=== PATIENT | male | born 1940 | race Caucasian/White ===

== ENCOUNTER → 2017-09-16 | Outpatient (CLI) | payer OTHER ==
[~2017-09-16] MED LIST: CMD/3 PO
--- NOTE | 2017-09-16 13:49 | DIAGNOSTIC IMAGING REPORT ---
CT SCAN OF THE CHEST WITHOUT IV CONTRAST CLINICAL HISTORY: Adenopathy. Pulmonary nodules. Hemoptysis. COMPARISON STUDY: Chest CT scans dated 02/21/2014 and 05/15/2011. TECHNIQUE: CT scan of the thorax was performed from the thoracic inlet to the upper abdomen. Images are reviewed in the axial, sagittal, and coronal planes. IV contrast was not administered for this examination as per the referring clinician. A dose lowering technique was utilized adhering to the principles of ALARA. The examination is compromised by motion artifact. CT DOSE: 386.11 mGy.cm FINDINGS: Thyroid: Imaged portions of the thyroid gland are normal in size and attenuation. Thoracic aorta: There is atherosclerotic calcification of the thoracic aorta, which is normal in caliber and demonstrates standard 3-vessel arch anatomy. Heart: The heart is enlarged and without pericardial effusion. The coronary arteries and mitral annulus are densely calcified. The pulmonary trunk is dilated measuring 3.5 cm in diameter. This suggests pulmonary artery hypertension. Lungs and pleural spaces: Evaluation of the lung parenchyma is degraded by motion artifact. There is no lobar consolidation or pleural effusion. The trachea and central airways are clear. There is an 8 mm pulmonary nodule in the left lower lobe seen on image #123. This is new from 02/21/2014. Foci of nodularity in the right middle lobe seen on image #31 measuring up to 7 mm and in the left upper lobe seen on images #16 measure 11 mm and #91 measuring 7 mm present dating back to 2011. Additional scattered nodular densities are noted. There is patchy groundglass consolidation in the right upper lobe. Mediastinum: There are numerous mildly enlarged mediastinal lymph nodes. A right paratracheal node on image #86 measures 14 mm short axis. A node in the anterior mediastinum on image #74 measures 11 mm in short axis. Prevascular nodes measure up to 9 mm short axis. A subcarinal node measures up to 17 mm in short axis. Kendra: The kendra are not well assessed without IV contrast. Bilateral hilar adenopathy is suspected. Calcified hilar nodes are seen on the right. Axillae: There is no axillary lymphadenopathy. Upper abdomen: There is a tiny hiatal hernia. A 3 cm cyst is again seen in the left upper pole. There are calcified splenic granulomas. Skeletal structures: The skeletal structures are osteopenic. There are mild compression deformities of T2, T3, and T12. No lytic or blastic bony lesions are seen. Arthritic change is seen in the shoulders and thoracic spine. IMPRESSION: 1. Motion degraded examination 2. There is patchy ground glass consolidation in the right upper lobe, likely resenting an infectious/inflammatory pneumonitis. Clinical correlation will be required. 3. Cardiomegaly. 4. Nonspecific mediastinal and hilar adenopathy are identified and similar in appearance to the 02/21/2014 examination. 5. There is an 8 mm left lower lobe pulmonary nodule which is new from prior studies. This is pathologically indeterminant and should be followed as per the Fleischner criteria. 6. Additional nodular densities have been present dating back to 2011 and are of low suspicion. Please refer to below summary of Fleischner criteria recommendations for follow-up of incidental CT nodules (Patel Da Silva, Guidelines for management of small pulmonary nodules detected on CT scans: A statement from the Fleischner Society, Radiology 237: [id number].) SOLID NODULES Solitary nodule size: <6 mm * low risk patients: no follow-up needed * high risk patients: optional CT at 12 months Solitary nodule size: 6-8 mm * low risk patients: follow-up at 6-12 months, then consider further follow-up at 18-24 months * high risk patients: initial follow-up CT at 6-12 months and then at 18-24 months if no change Solitary nodule size: >8 mm * either low or high risk patients - consider follow-up CT at 3 months, and/or CT-PET, and/or biopsy Multiple nodules size: <6 mm * low risk patients: no routine follow-up * high risk patients: optional CT at 12 months Multiple nodules size: 6-8 mm * low risk patients: follow-up at 3-6 months, then consider further follow-up at 18-24 months * high risk patients: follow-up at 3-6 months, then at 18-24 months if no change Multiple nodules size: >8 mm * low risk patients: follow-up at 3-6 months, then consider further follow-up at 18-24 months * high risk patients: follow-up at 3-6 months, then at 18-24 months if no change Note: newly detected indeterminate nodule in persons 35 years of age or older. * low risk patients: minimal or absent history of smoking and/or other known risk factors * high risk patients: history of smoking or of other known risk factors (e.g. first degree relative with lung cancer, or exposure to asbestos, radon, uranium) * if a nodule up to 8 mm is partly solid or is ground glass further follow-up is required after 24 months to exclude possible slow growing adenocarcinoma (DEMETRIO) SUBSOLID NODULES Solitary pure ground-glass nodule * nodule size <6 mm - no CT follow-up required * nodule size >=6 mm - follow-up CT at 6-12 months, then every 2 years until 5 years Solitary part-solid nodule * nodule size <6 mm - no CT follow-up required * nodule size >=6 mm - follow-up CT at 3-6 months. If unchanged, and solid component remains <6 mm, then annual follow-up for 5 years Multiple subsolid nodules * nodule size <6 mm - follow-up CT at 3-6 months, consider further follow-up at 2 and 4 years if stable * nodule size >=6 mm - follow-up CT at 3-6 months, subsequent management based on the most suspicious nodule(s) Electronically signed by: Gal Cleveland M.D. 09/16/2017 1:48 PM Dictated Date/Time: 09/16/2017 1:30 PM
== END | disposition home or self-care (01) ==
LOC: C.CTS 13:16
PROVIDERS: ATTEND Internal Medicine Critical Care Medicine
DX: R59.0 Localized enlarged lymph nodes (principal); R04.2 Hemoptysis; R91.8 Other nonspecific abnormal finding of lung field; I51.7 Cardiomegaly

== ENCOUNTER 2021-06-29 13:29 | Inpatient (IN) ==
[2021-06-29] MEDS ORDERED: CEFEPIME 2,000 MG/20 ML VIAL IV STA (13:37)
[2021-06-29] MEDS ORDERED: METOPROLOL TARTRATE 1 MG/ML VIAL IV STA (13:37)
--- NOTE | 2021-06-29 13:37 | Emergency Department Note ---
Impression & Plan Acute hypoxemic respiratory failure, Atrial fibrillation with rapid ventricular response, Atrial flutter ED Provider Note NAME: SORAIDA HALE AGE: 81 SEX: M : 1940 ARRIVES VIA: Ambulance INFORMANT: Patient, ED PROVIDER(S): Sin Wolfe MD Chief Complaint: Shortness of HPI: Patient reportedly has completed shortness of breath beginning in the last 24 hours. The patient has had mild cough but it is nonproductive. Patient does describe some left-sided chest discomfort as well as some additional left arm pain. Patient has been using a lidocaine patch to the left arm. No recent falls or trauma. The patient has had a recent complicated course of history described below. The patient does have a discharge summary from [facility]. This was completed on June 27 which was 2 days prior. Patient's reason for admission at that time is critical illness myopathy recent cardiogenic shock and acute respiratory failure with aortic and mitral valve replacement aspiration of breath patient does have a significant medical history for the patient had under gone elective aortic valve replacement mitral valve replacement. Postoperatively the patient was in cardiogenic shock and respiratory failure requiring intubation and pressors. Patient did require intubation and transvenous pacemaker placement bronchoscopy pneumothorax status post chest tube placement and subsequently had a PEG placed all occurring between the time that he had his procedure on March 26 2021 and April 19. Patient had a tracheostomy placed May 21. Patient was seen by his operative cardiothoracic surgeon Dr. Castellon on June 26 and the patient reported no symptoms at that time patient does have a history of diastolic CHF and pulmonary hypertension. ROS: See HPI for pertinent positives and negatives. A total of 10 systems were reviewed and otherwise negative. Past medical history: See below Surgical history: See below Social history: See below Physical Exam: GENERAL: Tachypnea, mildly ill in appearance, nonrebreather in place. EYE EXAM: Normal conjunctiva. PERRL, no anisocoria and EOM's grossly intact w/o pain. NECK: Supple, no nuchal rigidity, no adenopathy, non-tender. No signs of meningismus. Tracheostomy scar noted and well-healed. LUNGS: Tachypnea noted, decreased breath sounds throughout. HEART: Tachycardic and irregular regular, no MRG. ABDOMEN: Abdomen soft, non-tender, PEG tube in place, normo-active bowel sounds, no masses, no rebound or guarding. BACK: No CVA TTP. SKIN: No rashes and no bruising. UPPER EXTREMITIES: Upper extremities are grossly normal. LOWER EXTREMITIES: Grossly normal, no edema. NEURO EXAM: A&O x3, cranial nerves II-XII grossly intact, normal speech, moves all 4 extremities on command w/o issue. Differential diagnoses: Reactive airway disease, pneumonia, pneumothorax, COPD, CHF, infections, cardiac ischemia, pulmonary embolism, musculoskeletal, gastrointestinal, as well as other pathologies. Course: Patient was seen and evaluated the bedside. Full history physical exam was performed. EKG interpreted by me A. fib with RVR, rate of 130, wide QRS, right bundle branch block, left axis deviation Repeat EKG interpreted by me Likely 2-1 atrial flutter, ventricular rate of 72, wide QRS, right bundle branch block pattern, left axis deviation Imaging Studies: See Below Cardiac monitoring: An order was placed for continuous cardiac monitoring. The monitor shows a rate of 135 with tachycardic and irregularly irregular rhythm. MDM: Patient was seen due to concern for shortness of breath. Patient did have some significant tachycardia and likely A. fib. Patient does not have any obvious volume overload in the lower extremities. The patient was placed on BiPAP and was given dose of Lopressor. In the interim I was going to perform a bedside ultrasound with the patient converted and was what appeared to be a 2-1 atrial flutter. I did speak with on-call cardiology Dr. Villeda was able to review the patient's notes and patient had a bout of a flutter back in April. The patient was not in any current blood thinning medications at that time and currently was unsure as to whether or not he could continue blood thinning medications. This is deferred at this time. Patient states that his chest pain is virtually res olved with heart rate improvement. I do believe that the majority of the patient's symptoms are likely due to his diastolic dysfunction. Patient did have mild white count of 12 with a hemoglobin of 11. The patient did receive empiric antibiotics and blood cultures were completed as well. Patient's blood gas did show some mild hypercarbia with a PCO2 of 62. The patient did tolerate the BiPAP well and was feeling improved. Patient's kidney function is unremarkable. The patient's initial troponin was elevated at 50 with the patient's chest pain was improved. Patient's repeat EKG after Lop ressor did not show any obvious ischemic changes at this time. Procalcitonin was not elevated. I did speak with the on-call hospitalist Jyothi Zamudio PA-C and the patient was admitted to the medicine service by Dr. Aldana. I did update the patient's family and were at bedside Critical Care: I have personally spent 77 minutes of critical care time in direct management of this patient. This includes bedside care, interpretation of diagnostic studies, and testing, discussion with consultants, patient, and family members, and other require inpatient management activities. This 77 minutes is in excess of all separately billable procedures. Past Med/Surg History Medical History Allergic rhinitis Anemia Aortic stenosis CAD (coronary artery disease) Cardiomyopathy CHF (congestive heart failure), NYHA class II Chronic diastolic CHF (congestive heart failure) Congestive heart failure (CHF) Dysphagia GERD without esophagitis Gout Hearing loss of both ears due to cerumen impaction Hypercholesterolemia Itching Lung nodule Mediastinal lymphadenopathy Medicare annual wellness visit, subsequent Memory loss Mitral regurgitation and mitral stenosis Pulmonary hypertension Varicose vein of leg Vitamin D deficiency Surgical History Amputated finger H/O arthroscopic knee surgery Family History Other No pertinent family history Social History Smoking Status: Never smoker Second Hand Exposure: No; Do You Dip or Chew Tobacco: No; Tobacco Cessation Education Requested by Patient: No Hx Alcohol Use: No Hx Substance Use: No Preferred Language: Yoruba Communication Ability: Effective Visual Impairment: Limited Hearing Ability: Hard of Hearing [employer] Required: No Beliefs That Will Affect Care: None marital status: Single Current Living Situation: Custodial current occupational status: employed Other Information That Helps Us Care for You: No Feels Safe at Home: Yes Safety Concerns: Feels Safe At This Time Childhood Exposure to Second-Hand Smoke: No Physical Activity Frequency: Daily Seatbelt Use: always Sunscreen Use: No Assistive Devices: Oxygen - Continuous Allergies Allergies Allergy/AdvReac Type Severity Reaction Status Date / Time Penicillins Allergy Intermediate ITCH Verified 06/29/21 14:29 Iodinated Contrast Media Allergy Verified 06/29/21 14:29 [Iodinated Contrast- Oral and IV Dye] doxycycline AdvReac Intermediate dermatitis Verified 06/29/21 14:29 on lips and hands. Home Meds Home Medications Medication Instructions Recorded Confirmed aspirin 81 mg tablet,delayed 81 mg FEEDING TUBE DAILY tab 06/26/20 06/29/21 release (Aspirin Low Dose) acetaminophen 325 mg/10.15 mL oral 650 mg FEEDING TUBE Q6H PRN MDD 3 05/21/21 06/29/21 solution GRAMS/24 HOURS bisacodyl 10 mg rectal suppository 10 mg VT DAILY PRN 05/21/21 06/29/21 ferrous sulfate 300 mg (60 mg 300 mg FEEDING TUBE DAILY 05/21/21 06/29/21 iron)/5 mL oral liquid finasteride 5 mg tablet 5 mg FEEDING TUBE DAILY 05/21/21 06/29/21 atorvastatin 40 mg tablet 40 mg FEEDING TUBE DAILY 06/29/21 06/29/21 lidocaine 4 % topical patch 1 patch TOPICAL DAILY 06/29/21 06/29/21 omeprazole 20 mg capsule,delayed 0 mg FEEDING TUBE DAILY 06/29/21 06/29/21 release sennosides 8.6 mg-docusate sodium 2 tab-cap BID 06/29/21 06/29/21 50 mg tablet (Senokot-S) sildenafil (pulm.hypertension) 20 10 mg FEEDING TUBE TID 06/29/21 06/29/21 mg tablet trazodone 100 mg tablet 100 mg FEEDING TUBE HS 06/29/21 06/29/21 Results & Data (ED) Vital Signs Vital Signs - 24 hr 06/29/21 13:38 06/29/21 13:53 06/29/21 14:00 Temperature 37 C Temperature Source Oral Pulse Rate 132 H 145 H 143 H Pulse Rate [Right Finger] Pulse Rate from SpO2 Sensor Pulse Rhythm Regular Pulse Rhythm [Right Finger] Pulse Strength Normal Pulse Strength [Right Finger] Respiratory Rate 36 H 38 H Respiratory Effort / Characteristics Accessory Muscle Use Spontaneous Labored Respiratory Depth Retractive Respiratory Pattern Tachypnea Blood Pressure 149/84 H 149/84 H Blood Pressure [Right Arm] Blood Pressure Mean 105 Blood Pressure Mean [Right Arm] Blood Pressure Position [Right Arm] Pulse Oximetry 97 94 Oxygen Delivery Method Non-rebreather Oxygen Flow Rate 15 Fraction of Inspired Oxygen 40 Sepsis Recent Fever Within 48 Hours No Sepsis New/Unexplained Change in Mental Status No Sepsis Action Taken by Nursing Previously Notified Oxygen Flow Rate - Titration 15 Pulse Oximetry Post Tiitration 97 06/29/21 14:07 06/29/21 14:10 06/29/21 14:31 Temperature Temperature Source Pulse Rate 73 73 Pulse Rate [Right Finger] Pulse Rate from SpO2 Sensor 73 Pulse Rhythm Regular Pulse Rhythm [Right Finger] Pulse Strength Pulse Strength [Right Finger] Respiratory Rate 26 H 22 Respiratory Effort / Characteristics Accessory Muscle Use Labored Respiratory Depth Respiratory Pattern Blood Pressure 131/68 Blood Pressure [Right Arm] 149/84 H Blood Pressure Mean 89 Blood Pressure Mean [Right Arm] 105 Blood Pressure Position [Right Arm] Pulse Oximetry 95 95 97 Oxygen Delivery Method BiPAP BiPAP Oxygen Flow Rate Fraction of Inspired Oxygen 40 Sepsis Recent Fever Within 48 Hours Sepsis New/Unexplained Change in Mental Status Sepsis Action Taken by Nursing Oxygen Flow Rate - Titration Pulse Oximetry Post Tiitration 06/29/21 15:06 06/29/21 15:54 06/29/21 16:05 Temperature Temperature Source Pulse Rate Pulse Rate [Right Finger] 83 74 74 Pulse Rate from SpO2 Sensor Pulse Rhythm Pulse Rhythm [Right Finger] Regular Regular Pulse Strength Pulse Strength [Right Finger] Normal Normal Respiratory Rate 20 18 18 Respiratory Effort / Characteristics Labored Non-Labored Non-Labored Respiratory Depth Normal Normal Normal Respiratory Pattern Blood Pressure Blood Pressure [Right Arm] 132/87 129/59 L 134/67 Blood Pressure Mean Blood Pressure Mean [Right Arm] 102 82 89 Blood Pressure Position [Right Arm] Lying Pulse Oximetry 99 99 99 Oxygen Delivery Method Room Air BiPAP Oxygen Flow Rate Fraction of Inspired Oxygen Sepsis Recent Fever Within 48 Hours Sepsis New/Unexplained Change in Mental Status Sepsis Action Taken by Nursing Oxygen Flow Rate - Titration Pulse Oximetry Post Tiitration Home Medications Current Medication List: was personally reviewed by me Laboratory Data Attestation: I reviewed the patient's lab results. Result diagrams: 06/29/21 13:55 06/29/21 13:55 Lab Results 06/29/21 06/29/21 06/29/21 Range/Units 13:52 13:55 13:55 WBC 12.91 H (4.8-10.8) K/uL RBC 3.49 L (4.7-6.1) M/uL Hgb 11.6 L (14.0-18.0) g/dL Hct 35.9 L (42-52) % MCV 102.9 H (80-100) fL MCH 33.2 (25-34) pg MCHC 32.3 (32-36) g/dL RDW Std Deviation 64.2 H (36.4-46.3) fL RDW Coeff of Alejandro 16.9 H (11.5-14.5) % Plt Count 220 (130-400) K/uL MPV 10.7 H (7.4-10.4) fL Immature Gran % (Auto) 0.7 % Neut % (Auto) 78.3 % Lymph % (Auto) 10.6 % [place] % (Auto) 9.8 % Eos % (Auto) 0.4 % Baso % (Auto) 0.2 % Neut # (Auto) 10.12 H (1.4-6.5) K/uL Lymph # (Auto) 1.37 (1.2-3.4) K/uL [place] # (Auto) 1.26 H (0.11-0.59) K/uL Eos # (Auto) 0.05 (0-0.5) K/uL Baso # (Auto) 0.02 (0-0.2) K/uL Immature Gran # (Auto) 0.09 H (0.00-0.02) K/uL PT (9.0-12.0) Seconds INR (0.9-1.1) APTT (21.0-31.0) Seconds PTT Ratio VBG pH (7.36-7.41) VBG pCO2 (38-50) mmHg VBG pO2 mmHg VBG HCO3 mmol/L VBG O2 Saturation % VBG Base Excess mEq/L Barometric Pressure mm/Hg Sodium (136-145) mmol/L Potassium (3.5-5.1) mmol/L Chloride (98-107) mmol/L Carbon Dioxide (21-32) mmol/L Anion Gap (3-11) BUN (6-23) mg/dl Creatinine (0.6-1.4) mg/dl Est Cr Clr Drug Dosing ml/min Est GFR ( Amer) ml/min Est GFR (Non-Af Amer) ml/min BUN/Creatinine Ratio (10-20) Glucose (70-99(Fasting)) mg/dl Lactate (0.4-2.0) mmol/L Calcium (8.5-10.1) mg/dl Magnesium (1.7-2.4) mg/dl Total Bilirubin (0.2-1.0) mg/dl AST (13-39) U/L ALT (7-52) U/L Alkaline Phosphatase (34-104) U/L Troponin I High Sens 51.8 H* (0-20) pg/ml Total Protein (6.0-8.3) gm/dl Albumin (3.4-5.0) gm/dl Globulin (2.5-4.0) gm/dl Albumin/Globulin Ratio (0.9-2) Procalcitonin (0-0.5) ng/ml Urine Color Urine Appearance (Clear) Urine pH (4.5-7.5) Ur Specific [place] (1.000-1.030) Urine Protein (Negative) Urine Glucose (UA) (Negative) Urine Ketones (Negative) Urine Blood (Negative) Urine Nitrite (Negative) Urine Bilirubin (Negative) Urine Urobilinogen (Negative) Ur Leukocyte Esterase (Negative) Urine WBC (Auto) (0-5) /hpf Urine RBC (Auto) (0-4) /hpf U Hyaline Cast (Auto) (0-5) /lpf U Epithel Cells (Auto) (0-5) /lpf Urine Bacteria (Auto) (Negative) SARS-CoV-2 (PCR) NEGATIVE (Negative) Influenza Type A (PCR) Negative (Neg) Influenza Type B (PCR) Negative (Neg) RSV (RT-PCR) Negative (Neg) 06/29/21 06/29/21 06/29/21 Range/Units 13:55 13:55 13:55 WBC (4.8-10.8) K/uL RBC (4.7-6.1) M/uL Hgb (14.0-18.0) g/dL Hct (42-52) % MCV (80-100) fL MCH (25-34) pg MCHC (32-36) g/dL RDW Std Deviation (36.4-46.3) fL RDW Coeff of Alejandro (11.5-14.5) % Plt Count (130-400) K/uL MPV (7.4-10.4) fL Immature Gran % (Auto) % Neut % (Auto) % Lymph % (Auto) % [place] % (Auto) % Eos % (Auto) % Baso % (Auto) % Neut # (Auto) (1.4-6.5) K/uL Lymph # (Auto) (1.2-3.4) K/uL [place] # (Auto) (0.11-0.59) K/uL Eos # (Auto) (0-0.5) K/uL Baso # (Auto) (0-0.2) K/uL Immature Gran # (Auto) (0.00-0.02) K/uL PT 10.4 (9.0-12.0) Seconds INR 1.0 (0.9-1.1) APTT 27.7 (21.0-31.0) Seconds PTT Ratio 1.0 VBG pH (7.36-7.41) VBG pCO2 (38-50) mmHg VBG pO2 mmHg VBG HCO3 mmol/L VBG O2 Saturation % VBG Base Excess mEq/L Barometric Pressure mm/Hg Sodium 138 (136-145) mmol/L Potassium 4.5 (3.5-5.1) mmol/L Chloride 97 L (98-107) mmol/L Carbon Dioxide 33 H (21-32) mmol/L Anion Gap 8 (3-11) BUN 26 H (6-23) mg/dl Creatinine 0.52 L (0.6-1.4) mg/dl Est Cr Clr Drug Dosing 98.8 ml/min Est GFR ( Amer) 115.1 ml/min Est GFR (Non-Af Amer) 99.3 ml/min BUN/Creatinine Ratio 50.0 H (10-20) Glucose 108 H (70-99(Fasting)) mg/dl Lactate 0.9 (0.4-2.0) mmol/L Calcium 9.8 (8.5-10.1) mg/dl Magnesium 2.0 (1.7-2.4) mg/dl Total Bilirubin 0.4 (0.2-1.0) mg/dl AST 28 (13-39) U/L ALT 16 (7-52) U/L Alkaline Phosphatase 98 (34-104) U/L Troponin I High Sens (0-20) pg/ml Total Protein 7.3 (6.0-8.3) gm/dl Albumin 3.9 (3.4-5.0) gm/dl Globulin 3.4 (2.5-4.0) gm/dl Albumin/Globulin Ratio 1.1 (0.9-2) Procalcitonin (0-0.5) ng/ml Urine Color Urine Appearance (Clear) Urine pH (4.5-7.5) Ur Specific [place] (1.000-1.030) Urine Protein (Negative) Urine Glucose (UA) (Negative) Urine Ketones (Negative) Urine Blood (Negative) Urine Nitrite (Negative) Urine Bilirubin (Negative) Urine Urobilinogen (Negative) Ur Leukocyte Esterase (Negative) Urine WBC (Auto) (0-5) /hpf Urine RBC (Auto) (0-4) /hpf U Hyaline Cast (Auto) (0-5) /lpf U Epithel Cells (Auto) (0-5) /lpf Urine Bacteria (Auto) (Negative) SARS-CoV-2 (PCR) (Negative) Influenza Type A (PCR) (Neg) Influenza Type B (PCR) (Neg) RSV (RT-PCR) (Neg) 06/29/21 06/29/21 06/29/21 Range/Units 13:55 14:30 15:29 WBC (4.8-10.8) K/uL RBC (4.7-6.1) M/uL Hgb (14.0-18.0) g/dL Hct (42-52) % MCV (80-100) fL MCH (25-34) pg MCHC (32-36) g/dL RDW Std Deviation (36.4-46.3) fL RDW Coeff of Alejandro (11.5-14.5) % Plt Count (130-400) K/uL MPV (7.4-10.4) fL Immature Gran % (Auto) % Neut % (Auto) % Lymph % (Auto) % [place] % (Auto) % Eos % (Auto) % Baso % (Auto) % Neut # (Auto) (1.4-6.5) K/uL Lymph # (Auto) (1.2-3.4) K/uL [place] # (Auto) (0.11-0.59) K/uL Eos # (Auto) (0-0.5) K/uL Baso # (Auto) (0-0.2) K/uL Immature Gran # (Auto) (0.00-0.02) K/uL PT (9.0-12.0) Seconds INR (0.9-1.1) APTT (21.0-31.0) Seconds PTT Ratio VBG pH 7.35 L (7.36-7.41) VBG pCO2 62 H (38-50) mmHg VBG pO2 47 mmHg VBG HCO3 34 mmol/L VBG O2 Saturation 76.9 % VBG Base Excess 6.6 mEq/L Barometric Pressure 731.1 mm/Hg Sodium (136-145) mmol/L Potassium (3.5-5.1) mmol/L Chloride (98-107) mmol/L Carbon Dioxide (21-32) mmol/L Anion Gap (3-11) BUN (6-23) mg/dl Creatinine (0.6-1.4) mg/dl Est Cr Clr Drug Dosing ml/min Est GFR ( Amer) ml/min Est GFR (Non-Af Amer) ml/min BUN/Creatinine Ratio (10-20) Glucose (70-99(Fasting)) mg/dl Lactate (0.4-2.0) mmol/L Calcium (8.5-10.1) mg/dl Magnesium (1.7-2.4) mg/dl Total Bilirubin (0.2-1.0) mg/dl AST (13-39) U/L ALT (7-52) U/L Alkaline Phosphatase (34-104) U/L Troponin I High Sens (0-20) pg/ml Total Protein (6.0-8.3) gm/dl Albumin (3.4-5.0) gm/dl Globulin (2.5-4.0) gm/dl Albumin/Globulin Ratio (0.9-2) Procalcitonin < 0.05 (0-0.5) ng/ml Urine Color Yellow Urine Appearance Clear (Clear) Urine pH 8.0 H (4.5-7.5) Ur Specific [place] 1.013 (1.000-1.030) Urine Protein Negative (Negative) Urine Glucose (UA) Negative (Negative) Urine Ketones Negative (Negative) Urine Blood Negative (Negative) Urine Nitrite Positive A (Negative) Urine Bilirubin Negative (Negative) Urine Urobilinogen Negative (Negative) Ur Leukocyte Esterase Trace H (Negative) Urine WBC (Auto) 10-30 H (0-5) /hpf Urine RBC (Auto) 0-4 (0-4) /hpf U Hyaline Cast (Auto) 0 (0-5) /lpf U Epithel Cells (Auto) 20-30 H (0-5) /lpf Urine Bacteria (Auto) 4+ H (Negative) SARS-CoV-2 (PCR) (Negative) Influenza Type A (PCR) (Neg) Influenza Type B (PCR) (Neg) RSV (RT-PCR) (Neg) 06/29/21 Range/Units 15:51 WBC (4.8-10.8) K/uL RBC (4.7-6.1) M/uL Hgb (14.0-18.0) g/dL Hct (42-52) % MCV (80-100) fL MCH (25-34) pg MCHC (32-36) g/dL RDW Std Deviation (36.4-46.3) fL RDW Coeff of Alejandro (11.5-14.5) % Plt Count (130-400) K/uL MPV (7.4-10.4) fL Immature Gran % (Auto) % Neut % (Auto) % Lymph % (Auto) % [place] % (Auto) % Eos % (Auto) % Baso % (Auto) % Neut # (Auto) (1.4-6.5) K/uL Lymph # (Auto) (1.2-3.4) K/uL [place] # (Auto) (0.11-0.59) K/uL Eos # (Auto) (0-0.5) K/uL Baso # (Auto) (0-0.2) K/uL Immature Gran # (Auto) (0.00-0.02) K/uL PT (9.0-12.0) Seconds INR (0.9-1.1) APTT (21.0-31.0) Seconds PTT Ratio VBG pH (7.36-7.41) VBG pCO2 (38-50) mmHg VBG pO2 mmHg VBG HCO3 mmol/L VBG O2 Saturation % VBG Base Excess mEq/L Barometric Pressure mm/Hg Sodium (136-145) mmol/L Potassium (3.5-5.1) mmol/L Chloride (98-107) mmol/L Carbon Dioxide (21-32) mmol/L Anion Gap (3-11) BUN (6-23) mg/dl Creatinine (0.6-1.4) mg/dl Est Cr Clr Drug Dosing ml/min Est GFR ( Amer) ml/min Est GFR (Non-Af Amer) ml/min BUN/Creatinine Ratio (10-20) Glucose (70-99(Fasting)) mg/dl Lactate (0.4-2.0) mmol/L Calcium (8.5-10.1) mg/dl Magnesium (1.7-2.4) mg/dl Total Bilirubin (0.2-1.0) mg/dl AST (13-39) U/L ALT (7-52) U/L Alkaline Phosphatase (34-104) U/L Troponin I High Sens 66.4 H* D (0-20) pg/ml Total Protein (6.0-8.3) gm/dl Albumin (3.4-5.0) gm/dl Globulin (2.5-4.0) gm/dl Albumin/Globulin Ratio (0.9-2) Procalcitonin (0-0.5) ng/ml Urine Color Urine Appearance (Clear) Urine pH (4.5-7.5) Ur Specific [place] (1.000-1.030) Urine Protein (Negative) Urine Glucose (UA) (Negative) Urine Ketones (Negative) Urine Blood (Negative) Urine Nitrite (Negative) Urine Bilirubin (Negative) Urine Urobilinogen (Negative) Ur Leukocyte Esterase (Negative) Urine WBC (Auto) (0-5) /hpf Urine RBC (Auto) (0-4) /hpf U Hyaline Cast (Auto) (0-5) /lpf U Epithel Cells (Auto) (0-5) /lpf Urine Bacteria (Auto) (Negative) SARS-CoV-2 (PCR) (Negative) Influenza Type A (PCR) (Neg) Influenza Type B (PCR) (Neg) RSV (RT-PCR) (Neg) Administered Medications Discontinued Medications Diphenhydramine HCl (Diphenhydramine 50 Mg/Ml Vial) 25 mg IV NOW STA Stop: 06/29/21 15:59 Last Admin: 06/29/21 16:13 Dose: 25 mg Documented by: [id number] Cefepime HCl (Maxipime) 2,000 mg in 20 mls @ 5 mls/min IV NOW STA; Protocol Stop: 06/29/21 13:40 Last Admin: 06/29/21 14:35 Dose: 5 mls/min Documented by: [id number] Methylprednisolone 40 mg/ (Dextrose) 250.64 mls @ 266 mls/hr IV NOW STA Stop: 06/29/21 16:47 Last Admin: 06/29/21 16:10 Dose: Not Given Documented by: [id number] Ioversol (Optiray 320 125ml) 120 ml IV ONCE ONE Stop: 06/29/21 16:40 Last Admin: 06/29/21 16:39 Dose: 120 ml Documented by: [id number] Methylprednisolone (Methylprednisolone 40 Mg/Ml Vial) 40 mg IV NOW STA Stop: 06/29/21 16:07 Last Admin: 06/29/21 16:13 Dose: 40 mg Documented by: [id number] Metoprolol Tartrate (Metoprolol Tartrate 1 Mg/Ml Vial) 5 mg IV NOW STA Stop: 06/29/21 13:38 Last Admin: 06/29/21 13:53 Dose: 5 mg Documented by: [id number] Imaging Data Radiologist's Impression: Chest X-Ray 06/29/21 13:37 XR chest 1V portable CLINICAL HISTORY: SEPSIS TECHNIQUE: Single frontal radiograph of the chest was obtained. Comparison: Comparison is made to chest radiograph on 08/05/2014 FINDINGS: Median sternotomy wires are unchanged. Calcified aortic knob is seen. Lungs are underinflated. There are faint bilateral lower lung predominant airspace opacities. No evidence of pleural effusion or pneumothorax. IMPRESSION: Faint bibasilar airspace opacities which may represent atelectasis, pneumonia, and/or aspiration. ACT 112: Negative or not required by law. Electronically signed by: Thony Alicea M.D. 06/29/2021 1:51 PM Chest CTA 06/29/21 15:48 CT angio chest PE protocol CLINICAL HISTORY: PE TECHNIQUE: Multidetector row helical CT of the chest was performed with angiographic protocol. Coronal and sagittal reformations were obtained. Coronal and sagittal MIPS were obtained from the axial data set and were submitted for review. Automated dose lowering techniques and/or adjustment according to patient size were utilized for this exam. CT DOSE: 529.68 mGy.cm Comparison: Comparison is made to CT chest 03/24/2019 and 05/26/2018 FINDINGS: Lungs and pleura: Atelectasis versus scarring is seen in the dependent portions of the lungs. Emphysema and scarring are seen. There is suggestion of groundglass opacity in the bilateral lungs. Multiple pulmonary nodules in the right midlung are stable from prior exams. Heart and pericardium: There is cardiomegaly without evidence of pericardial effusion. Vessels: No evidence of pulmonary embolism. The pulmonary trunk measures 35 mm in diameter. Mediastinum and aixa: Multiple prominent lymph nodes are seen measuring up to 12 mm in diameter. Chest wall and lower neck: Unremarkable. Abdomen: Unremarkable. Bones: Degenerative changes in the thoracic spine. IMPRESSION: 1. No evidence of pulmonary embolism. 2. Cardiomegaly and pulmonary hypertension. 3. Groundglass opacities in the bilateral lungs may represent infectious/inflammatory process. ACT 112: Negative or not required by law. Electronically signed by: Thony Alicea M.D. 06/29/2021 5:02 PM Discharge Plan Visit Data Chief Complaint: Shortness of Breath/Dyspnea Stated Complaint: SOB ED Provider: Sin Wolfe Discharge Problem: Acute hypoxemic respiratory failure, Atrial fibrillation with rapid ventricular response, Atrial flutter Patient Disposition: Admitted As Inpatient Discharge Instructions Interventions: ED Discharge Assessment Last Done: 06/29/21 17:03
--- NOTE | 2021-06-29 13:52 | XRay Report ---
XR chest 1V portable CLINICAL HISTORY: SEPSIS TECHNIQUE: Single frontal radiograph of the chest was obtained. Comparison: Comparison is made to chest radiograph on 08/05/2014 FINDINGS: Median sternotomy wires are unchanged. Calcified aortic knob is seen. Lungs are underinflated. There are faint bilateral lower lung predominant airspace opacities. No evidence of pleural effusion or pne umothorax. IMPRESSION: Faint bibasilar airspace opacities which may represent atelectasis, pneumonia, and/or aspiration. ACT 112: Negative or not required by law. Electronically signed by: Thony Alicea M.D. 06/29/2021 1:51 PM
[2021-06-29 14:19] LABS: Basophils % (auto) 0.2 %; Eosinophils % (auto) 0.4 %; Hematocrit (blood only) 35.9 % (42-52); Hemoglobin 11.6 g/dL (14.0-18.0); Immature Granulocytes % (auto) 0.7 %; Lymphocytes # (auto) 1.37 K/uL (1.2-3.4); Lymphocytes % (auto) 10.6 %; Mean Corpuscular Hemoglobin 33.2 pg (25-34); Mean Corpuscular Hgb Conc 32.3 g/dL (32-36); Mean Corpuscular Volume 102.9 fL (80-100); Mean Platelet Volume 10.7 fL (7.4-10.4); Monocytes # (auto) 1.26 K/uL (0.11-0.59); Monocytes % (auto) 9.8 %; Neutrophils # (auto) 10.12 K/uL (1.4-6.5); Neutrophils % (auto) 78.3 %; Platelet Count 220 K/uL (130-400); RDW Coefficient of Variation 16.9 % (11.5-14.5); RDW Standard Deviation 64.2 fL (36.4-46.3); Red Blood Count 3.49 M/uL (4.7-6.1); White Blood Count 12.91 K/uL (4.8-10.8)
[2021-06-29 14:20] LABS: Basophils # (auto) 0.02 K/uL (0-0.2); Eosinophils # (auto) 0.05 K/uL (0-0.5); Immature Granulocytes # (auto) 0.09 K/uL (0.00-0.02)
[2021-06-29 14:32] LABS: Partial Thromboplastin Time 27.7 Seconds (21.0-31.0); Prothrombin Time 10.4 Seconds (9.0-12.0)
[2021-06-29 14:38] LABS: Albumin Globulin Ratio 1.1 (0.9-2); Albumin Level 3.9 gm/dl (3.4-5.0); Bilirubin,Total 0.4 mg/dl (0.2-1.0); Calcium 9.8 mg/dl (8.5-10.1); Creatinine Clr Calc Pharmacy 98.8 ml/min; Est GFR (African American) 115.1 ml/min; Est GFR (Non-African American) 99.3 ml/min; Globulin 3.4 gm/dl (2.5-4.0); Potassium 4.5 mmol/L (3.5-5.1); Total Protein 7.3 gm/dl (6.0-8.3)
[2021-06-29 14:44] LABS: Base Excess VBG 6.6 mEq/L; Oxygen Saturation VBG 76.9 %; pH VBG 7.35 (7.36-7.41)
[2021-06-29 14:55] LABS: Influenza A virus by PCR Negative (Neg); Influenza B virus by PCR Negative (Neg); RSV by PCR Negative (Neg); SARS CoV2 RNA(COVID-19) InHosp NEGATIVE (Negative)
--- NOTE | 2021-06-29 15:09 | History & Physical Report ---
Date of Service June 29, 2021 Assessment & Plan (1) Acute respiratory failure with hypoxia: Plan: - Shortness of breath, SpO2 in 80s at nursing facility. Presented on nonrebreather, transition to BiPAP with SPO2 > 95%. Found to be in A. fib with RVR upon arrival. - Chest CT without evidence of PE, showed cardiomegaly and pulmonary hypertension as well as ground-glass opacities in bilateral lungs previously seen on chest x-ray representing either infectious or inflammatory process. Given his lactate and procalcitonin are within normal limits, do not suspect an infection. Suspect a combination of a fib w/ RVR with ? mucus plug may be responsible. - Continue with BIPAP and attempt to wean down, baseline O2 requirement at [facility] was 2L NC per niece. (2) Atrial fibrillation with RVR: Plan: - At presentation to ED, found to be in A. fib RVR with heart rate in 130s. Converted to normal sinus rhythm after 5 mg IV Lopressor, however back in 2:1 a flutter with heart rate in 70s. - Patient had episode a fib during his complicated hospitalization for valve replacements. No other history of this. Unknown how long he has been in this. - Electrolytes within normal limits. Will obtain echo, TSH. - Consult Dr. Villeda with cardiology. Recommending 25 mg metoprolol BID. - Will start anticoagulation tonight with Eliquis. (3) Elevated troponin: Plan: - Initial high sensitive troponin 51.8, repeat hours later 66.4. Currently without chest pain. Continue to trend, new EKG with new complaints of chest pain. - In the setting of A. fib with RVR, hypoxemia, suspect this is demand ischemia. (4) Leukocytosis: Plan: - 12.91, with lactate and procalcitonin within normal limits. No obvious source of infection right now. - Blood and urine culture sent. - Repeat CBC in AM. (5) (HFpEF) heart failure with preserved ejection fraction: Plan: - Echo from March 2021: Stunned myocardium, LVEF 40 to 45%, globally hypokinetic. - Appears euvolemic. He was previously been on diuretic, no longer taking. - Obtain echo. (6) CAD (coronary artery disease): Plan: - Continue statin, ASA 81 mg daily. (7) Pulmonary hypertension: Plan: - Continue sildenafil 10 mg 3 times daily. (8) GERD without esophagitis: Plan: - Continue PPI daily. (9) Hypercholesterolemia: Plan: - Continue atorvastatin 40 mg daily. (10) BPH (benign prostatic hyperplasia): Plan: - Continue finasteride. (11) Dysphagia: Plan: - Chronic PEG tube in place: Jevity 85 cc/hr 3pm - 7 am with 20cc water flushes Q6h. - Jevity ordered by pharmacy since dietary is not here in evening, will consult them for tomorrow. Flushes ordered. Plan: - Admit to PCU. - SCDs, Eliquis for DVT ppx. - Full Code. History of Present Illness Chief Complaint: Hypoxia, shortness of breath x1 day Primary Care Provider: Gal Santiago MD Mr. Trevizo is an 81-year-old male with past medical history significant for elective aortic and mitral valve replacement and tricuspid valve ring in March 2021 with multiple postoperative complications, CAD, BPH, pulmonary hypertension, GERD, iron deficiency anemia, chronic systolic and diastolic heart failure who presents today from [facility] due to shortness of breath and hypoxia this morning. Patient's niece is at bedside, contributes most of history. States she was visiting with her uncle last evening, when he was doing okay, did not feel great, but did not have specific complaints and seemed to be improving since discharge from [facility] 2 days prior. Patient states he had had some difficulty breathing this morning, otherwise without complaints. Patient's niece received a call from the facility this morning and they were transporting him to the ED for evaluation due to SPO2 in 80s and complains of shortness of breath. In ED, he presented on a nonrebreather mask, transitioned to BiPAP here with SpO2 > 95%, HR 140s found to be in a fib with RVR on presentation. BP hypertensive, 130-140s, stable. Labs significant for WBC 12.91 lactate 1.0, PCT < 0.05. Hgb 11.6 (baseline). vBG: H 7.35, CO2 62, O2 47, bicarb 34. BUN 26, Cr 0.52 (baseline). Initial HS trop 51.8, repeat 66.4. UA contaminated with epithelial cells, but with nitrites, bacteria, WBC. flu/COVID/RSV negative. CXR with faint bibasilar airspace opacities which may represent atelectasis, pneumonia, and/or aspiration. Patient received 5 mg IV Lopressor for A. fib and converted to NSR, converted back to atrial flutter.also received IV cefepime for empiric ABX given his leukocytosis. Hospitalist service consulted for further evaluation and admission. Allergies Allergy/AdvReac Type Severity Reaction Status Date / Time Penicillins Allergy Intermediate ITCH Verified 06/29/21 14:29 Iodinated Contrast Media Allergy Verified 06/29/21 14:29 [Iodinated Contrast- Oral and IV Dye] doxycycline AdvReac Intermediate dermatitis Verified 06/29/21 14:29 on lips and hands. Home Medications Medication Instructions Recorded Confirmed Type aspirin 81 mg tablet,delayed 81 mg FEEDING TUBE DAILY tab 06/26/20 06/29/21 History release (Aspirin Low Dose) acetaminophen 325 mg/10.15 mL oral 650 mg FEEDING TUBE Q6H PRN MDD 3 05/21/21 06/29/21 History solution GRAMS/24 HOURS bisacodyl 10 mg rectal suppository 10 mg OR DAILY PRN 05/21/21 06/29/21 History ferrous sulfate 300 mg (60 mg 300 mg FEEDING TUBE DAILY 05/21/21 06/29/21 History iron)/5 mL oral liquid finasteride 5 mg tablet 5 mg FEEDING TUBE DAILY 05/21/21 06/29/21 History atorvastatin 40 mg tablet 40 mg FEEDING TUBE DAILY 06/29/21 06/29/21 History lidocaine 4 % topical patch 1 patch TOPICAL DAILY 06/29/21 06/29/21 History omeprazole 20 mg capsule,delayed 0 mg FEEDING TUBE DAILY 06/29/21 06/29/21 History release sennosides 8.6 mg-docusate sodium 2 tab-cap BID 06/29/21 06/29/21 History 50 mg tablet (Senokot-S) sildenafil (pulm.hypertension) 20 10 mg FEEDING TUBE TID 06/29/21 06/29/21 History mg tablet trazodone 100 mg tablet 100 mg FEEDING TUBE HS 06/29/21 06/29/21 History Past Med/Surg History Medical History Allergic rhinitis Anemia Aortic stenosis CAD (coronary artery disease) Cardiomyopathy CHF (congestive heart failure), NYHA class II Chronic diastolic CHF (congestive heart failure) Congestive heart failure (CHF) Dysphagia GERD without esophagitis Gout Hearing loss of both ears due to cerumen impaction Hypercholesterolemia Itching Lung nodule Mediastinal lymphadenopathy Medicare annual wellness visit, subsequent Memory loss Mitral regurgitation and mitral stenosis Pulmonary hypertension Varicose vein of leg Vitamin D deficiency Surgical History Amputated finger H/O arthroscopic knee surgery Family History Other No pertinent family history Social History Smoking Status: Never smoker Second Hand Exposure: No; Do You Dip or Chew Tobacco: No; Tobacco Cessation Education Requested by Patient: No Hx Alcohol Use: No Hx Substance Use: No Preferred Language: Sierra Leonean Communication Ability: Effective Visual Impairment: Limited Hearing Ability: Hard of Hearing Cooker Tender Required: No Beliefs That Will Affect Care: None marital status: Single Current Living Situation: [facility] current occupational status: employed Other Information That Helps Us Care for You: No Feels Safe at Home: Yes Safety Concerns: Feels Safe At This Time Childhood Exposure to Second-Hand Smoke: No Physical Activity Frequency: Daily Seatbelt Use: always Sunscreen Use: No Assistive Devices: Oxygen - Continuous Review of Systems Review of Systems: Constitutional: No fever/chills, weakness, fatigue, myalgias, anorexia, night sweats Eyes: No diplopia, no worsening or blurred vision ENT: normal hearing, no trouble swallowing Respiratory: No cough, sputum, dyspnea at rest or on exertion Cardiovascular: No chest pain, tightness or palpitations Abdomen: No pain, nausea, vomiting, diarrhea or constipation : Denies dysuria, hematuria, increased urgency/frequency, urinary retention Musculoskeletal: No joint pain, calf pain, swelling Neurologic: No weakness, numbness/tingling, or balance problems Psychiatric: No anxiety or depression Skin: No rash or itch Physical Exam Physical Exam: General: awake, alert, no apparent distress, on BiPAP Head: Normocephalic, atraumatic ENT: PERRL, EOMI, no pharyngeal exudate, mucous membranes moist Chest: Clear to auscultation, on room air, no adventitious breath sounds Cardiac: Regular rate and rhythm, no murmur, no JVD, normal peripheral pulses, good capillary refill Abdominal: NABS x 4 quadrants, soft, nontender to palpation, no rebound, guarding or tenderness Extremities: Normal inspection, no peripheral edema or erythema, calfs nontender to palpation Psych: Normal mood and affect Neuro: AAO x 3, strength intact bilaterally and rated 5/5, no motor deficits, speech is clear, no peripheral sensory deficits Skin: no rash or erythema Results & Data Results & Data ([facility]) Vital Signs (Past 12 Hours) Vital Signs Temp Pulse Resp BP BP Pulse Ox 06/29/21 14:31 73 22 131/68 97 06/29/21 14:10 73 26 H 95 06/29/21 14:07 149/84 H 95 06/29/21 13:53 145 H 149/84 H 06/29/21 13:38 37 C 132 H 36 H 149/84 H 97 Laboratory Results Abnormal lab results 06/29/21 06/29/21 06/29/21 Range/Units 13:55 13:55 13:55 WBC 12.91 H (4.8-10.8) K/uL RBC 3.49 L (4.7-6.1) M/uL Hgb 11.6 L (14.0-18.0) g/dL Hct 35.9 L (42-52) % MCV 102.9 H (80-100) fL RDW Std Deviation 64.2 H (36.4-46.3) fL RDW Coeff of Alejandro 16.9 H (11.5-14.5) % MPV 10.7 H (7.4-10.4) fL Neut # (Auto) 10.12 H (1.4-6.5) K/uL Ballard # (Auto) 1.26 H (0.11-0.59) K/uL Immature Gran # (Auto) 0.09 H (0.00-0.02) K/uL VBG pH (7.36-7.41) VBG pCO2 (38-50) mmHg Chloride 97 L (98-107) mmol/L Carbon Dioxide 33 H (21-32) mmol/L BUN 26 H (6-23) mg/dl Creatinine 0.52 L (0.6-1.4) mg/dl BUN/Creatinine Ratio 50.0 H (10-20) Glucose 108 H (70-99(Fasting)) mg/dl Troponin I High Sens 51.8 H* (0-20) pg/ml 06/29/21 Range/Units 14:30 WBC (4.8-10.8) K/uL RBC (4.7-6.1) M/uL Hgb (14.0-18.0) g/dL Hct (42-52) % MCV (80-100) fL RDW Std Deviation (36.4-46.3) fL RDW Coeff of Aleajndro (11.5-14.5) % MPV (7.4-10.4) fL Neut # (Auto) (1.4-6.5) K/uL Ballard # (Auto) (0.11-0.59) K/uL Immature Gran # (Auto) (0.00-0.02) K/uL VBG pH 7.35 L (7.36-7.41) VBG pCO2 62 H (38-50) mmHg Chloride (98-107) mmol/L Carbon Dioxide (21-32) mmol/L BUN (6-23) mg/dl Creatinine (0.6-1.4) mg/dl BUN/Creatinine Ratio (10-20) Glucose (70-99(Fasting)) mg/dl Troponin I High Sens (0-20) pg/ml Diagnostic Findings Chest X-Ray 06/29/21 13:37 XR chest 1V portable CLINICAL HISTORY: SEPSIS TECHNIQUE: Single frontal radiograph of the chest was obtained. Comparison: Comparison is made to chest radiograph on 08/05/2014 FINDINGS: Median sternotomy wires are unchanged. Calcified aortic knob is seen. Lungs are underinflated. There are faint bilateral lower lung predominant airspace opacities. No evidence of pleural effusion or pneumothorax. IMPRESSION: Faint bibasilar airspace opacities which may represent atelectasis, pneumonia, and/or aspiration. ACT 112: Negative or not required by law. Electronically signed by: Thony Alicea M.D. 06/29/2021 1:51 PM Chest CTA 06/29/21 15:48 CT angio chest PE protocol CLINICAL HISTORY: PE TECHNIQUE: Multidetector row helical CT of the chest was performed with angiographic protocol. Coronal and sagittal reformations were obtained. Coronal and sagittal MIPS were obtained from the axial data set and were submitted for review. Automated dose lowering techniques and/or adjustment according to patient size were utilized for this exam. CT DOSE: 529.68 mGy.cm Comparison: Comparison is made to CT chest 03/24/2019 and 05/26/2018 FINDINGS: Lungs and pleura: Atelectasis versus scarring is seen in the dependent portions of the lungs. Emphysema and scarring are seen. There is suggestion of groundglass opacity in the bilateral lungs. Multiple pulmonary nodules in the right midlung are stable from prior exams. Heart and pericardium: There is cardiomegaly without evidence of pericardial effusion. Vessels: No evidence of pulmonary embolism. The pulmonary trunk measures 35 mm in diameter. Mediastinum and aixa: Multiple prominent lymph nodes are seen measuring up to 12 mm in diameter. Chest wall and lower neck: Unremarkable. Abdomen: Unremarkable. Bones: Degenerative changes in the thoracic spine. IMPRESSION: 1. No evidence of pulmonary embolism. 2. Cardiomegaly and pulmonary hypertension. 3. Groundglass opacities in the bilateral lungs may represent infectious/inflammatory process. ACT 112: Negative or not required by law. Electronically signed by: Thony Alicea M.D. 06/29/2021 5:02 PM ECG Additional Comments: 06/29 1:37 PM: Atrial fibrillation with rapid ventricular response Right bundle branch block Left anterior fascicular block Bifascicular block Moderate voltage criteria for LVH, may be normal variant Abnormal ECG When compared with ECG of 24-FEB-2014 15:42, Atrial fibrillation has replaced Sinus rhythm Vent. rate has increased BY 68 BPM (RBBB and left anterior fascicular block) is now Present 06/29 2:05 PM: Normal sinus rhythm Right bundle branch block Left anterior fascicular block Bifascicular block Moderate voltage criteria for LVH, may be normal variant Abnormal ECG When compared with ECG of 29-JUN-2021 13:38, (unconfirmed) Sinus rhythm has replaced Atrial fibrillation Vent. rate has decreased BY 58 BPM 06/29 4:03 PM: Atrial flutter with variable A-V block Right bundle branch block Left anterior fascicular block Bifascicular block Minimal voltage criteria for LVH, may be normal variant Abnormal ECG When compared with ECG of 29-JUN-2021 14:05, (unconfirmed) Atrial flutter has replaced Sinus rhythm Code Status & VTE Plan Code Status Full Code. Supervising Physician Co-Signing Physician Notes I personally saw and examined the patient. I verified all looney points and agree with Jyothi Zamudio PA-C with the following exceptions and/or additions: 81 year old male with complex recent history starting in March at [facility] with aortic and mitral valve replacement and tricuspid valve repair with an annuloplasty ring on March 26. Post operatively he had a very complicated course requiring inotropic support, delirium requiring sedatives and was re-intubated several times. Eventually he required insertion of tracheostomy and PEG tube for feeding. Lead-less pacemaker placed for complete heart block. He was finally weaned off ventilator support at LTAC in [place] and tracheostomy removed. Transferred to [facility] for rehabilitation and now is at [facility] for ongoing care. Sudden onset shortness of breath and hypoxia this morning. Noticed to be in a. fib with RVR while in the ER which converted to a. flutter rate controlled after 5mg IV metoprolol. O/E alert, poorly nourished, frail, Bibasal rhonchi, Chest - poor bibasal air entry, no crackles or wheezes, RRR no murmurs, PEG tube without surrounding erythema A/P New onset a. fib RVR - like causing his shortness of breath but less likely causing hypoxia ?mucus plugging. No PE on CT. Given improvement on BiPAP in ER suspect some mucus plugging to blame. TTE. TSH. metoprolol tartrate 25mg PO BID. Start anticoagulation with Eliquis Otherwise as above. PG Care Time/CCT Total # of Minutes Spent Total Time Spent with Patient: Total time spent is greater than 50% in coordination of care (as documented) at patient's floor/unit and/or counseling patient: Coding Level of Care Code 42407 Initial Inpt Care Lvl 3 Diagnoses (HFpEF) heart failure with preserved ejection fraction I50.30 CAD (coronary artery disease) I25.10 Pulmonary hypertension I27.20 Dysphagia R13.10 Atrial fibrillation with RVR I48.91 Elevated troponin R77.8 GERD without esophagitis K21.9 Hypercholesterolemia E78.00 Acute respiratory failure with hypoxia J96.01 Leukocytosis D72.829 BPH (benign prostatic hyperplasia) N40.0
[2021-06-29 15:47] LABS: Appearance Urine Clear (Clear); Bacteria Urine Automated 4+ (Negative); Bilirubin Urine Negative (Negative); Blood Urine Negative (Negative); Cast Urine Automated 0 /lpf (0-5); Color Urine Yellow; Epithelial Cell Urine Auto 20-30 /lpf (0-5); Glucose Urine UA Negative (Negative); Ketones Urine Negative (Negative); Leukocyte Esterase Urine Trace (Negative); Nitrite Urine Positive (Negative); Protein Urine Negative (Negative); RBC Urine Automated 0-4 /hpf (0-4); Specific Gravity Urine 1.013 (1.000-1.030); Urobilinogen Urine Negative (Negative)
[2021-06-29] MEDS ORDERED: methylPREDNISolone 40 MG in DEXTROSE 5% 250 ML IV STA (15:48)
[2021-06-29] MEDS ORDERED: diphenhydrAMINE 50 MG/ML VIAL IV STA (15:58)
[2021-06-29] MEDS ORDERED: OPTIRAY 320 125ml IV ONE (16:39)
--- NOTE | 2021-06-29 17:05 | CT Scan Report ---
CT angio chest PE protocol CLINICAL HISTORY: PE TECHNIQUE: Multidetector row helical CT of the chest was performed with angiographic protocol. Plaza l and sagittal reformations were obtained. Coronal and sagittal MIPS were obtained from the axial antonino a set and were submitted for review. Automated dose lowering techniques and/or adjustment according to patient size were utilized for this exam. CT DOSE: 529.68 mGy.cm Comparison: Comparison is made to CT chest 03/24/2019 and 05/26/2018 FINDINGS: Lungs and pleura: Atelectasis versus scarring is seen in the dependent portions of the lungs. Emphyse ma and scarring are seen. There is suggestion of groundglass opacity in the bilateral lungs. Multiple pulmonary nodules in the right midlung are stable from prior exams. Heart and pericardium: There is cardiomegaly without evidence of pericardial effusion. Vessels: No evidence of pulmonary embolism. The pulmonary trunk measures 35 mm in diameter. Mediastinum and aixa: Multiple prominent lymph nodes are seen measuring up to 12 mm in diameter. Chest wall and lower neck: Unremarkable. Abdomen: Unremarkable. Bones: Degenerative changes in the thoracic spine. IMPRESSION: 1. No evidence of pulmonary embolism. 2. Cardiomegaly and pulmonary hypertension. 3. Groundglass opacities in the bilateral lungs may represent infectious/inflammatory process. ACT 112: Negative or not required by law. Electronically signed by: Thony Alicea M.D. 06/29/2021 5:02 PM
[2021-06-29] MEDS ORDERED: ONDANSETRON INJ 2 MG/ML 2 ML VIAL IV PRN (17:56)
[2021-06-29] MEDS ORDERED: bisacodyL 10 MG SUPP PR PRN (17:56)
[2021-06-29] MEDS ORDERED: ACETAMINOPHEN SUSP 325 MG/10.15 ML UDC PEG PRN (18:26)
[2021-06-29] MEDS: FIBERSOURCE HN 1.2 CAL 1000 ML BAG PO SCH (21:19)
[2021-06-29] MEDS: TUBE FEEDING WATER FLUSH GT SCH (21:20)
[2021-06-29] MEDS: METOPROLOL TARTRATE 25 MG TAB OG SCH (21:23)
[2021-06-29] MEDS: traZODone HCL 100 MG TAB PO SCH (21:23)
[2021-06-29] MEDS: APIXABAN 2.5 MG TAB PO SCH (21:23)
[2021-06-29] MEDS: SILDENAFIL CITRATE 20 MG TABLET PO SCH (21:23)
[2021-06-29] MEDS: DOCUSATE SODIUM/SENNA 50/8.6MG TAB PO SCH (21:23)
[2021-06-30] MEDS: TUBE FEEDING WATER FLUSH GT SCH ×2 (02:00→08:27)
[2021-06-30] MEDS: DOCUSATE SODIUM/SENNA 50/8.6MG TAB PO SCH ×2 (08:25→20:33)
[2021-06-30] MEDS: APIXABAN 2.5 MG TAB PO SCH ×2 (08:25→20:35)
[2021-06-30] MEDS: METOPROLOL TARTRATE 25 MG TAB OG SCH ×2 (08:26→20:35)
[2021-06-30] MEDS: SILDENAFIL CITRATE 20 MG TABLET PO SCH ×3 (08:26→20:34)
[2021-06-30] MEDS: FINASTERIDE 5 MG TAB PEG SCH (08:26)
[2021-06-30] MEDS: ASPIRIN 81 MG CHEW PEG SCH (08:26)
[2021-06-30] MEDS: [UNRECOGNIZED DRUG - REMARK] SCH (08:27)
[2021-06-30] MEDS: LANSOPRAZOLE 30 MG SOLTAB NG SCH (08:27)
[2021-06-30] MEDS: ATORVASTATIN 40 MG TAB PEG SCH (08:27)
[2021-06-30] MEDS: FERROUS SULFATE ELIX 220MG/5ML PEG SCH (08:27)
[2021-06-30] MEDS: LIDOCAINE 5% 1 PATCH TD SCH (08:28)
[2021-06-30] MEDS ORDERED: ASPIRIN 81 MG ECTAB PO SCH (09:00)
[2021-06-30 09:57] LABS: Basophils # (auto) 0.01 K/uL (0-0.2); Basophils % (auto) 0.1 %; Hematocrit (blood only) 31.2 % (42-52); Hemoglobin 10.1 g/dL (14.0-18.0); Immature Granulocytes # (auto) 0.02 K/uL (0.00-0.02); Immature Granulocytes % (auto) 0.2 %; Lymphocytes # (auto) 0.91 K/uL (1.2-3.4); Mean Corpuscular Hgb Conc 32.4 g/dL (32-36); Mean Platelet Volume 10.3 fL (7.4-10.4); Monocytes # (auto) 1.33 K/uL (0.11-0.59); Neutrophils # (auto) 6.03 K/uL (1.4-6.5); Neutrophils % (auto) 72.7 %; Platelet Count 207 K/uL (130-400); RDW Coefficient of Variation 16.8 % (11.5-14.5); RDW Standard Deviation 62.8 fL (36.4-46.3); Red Blood Count 3.06 M/uL (4.7-6.1)
[2021-06-30] MEDS: TUBE FEEDING WATER FLUSH PEG SCH ×4 (10:09→22:26)
--- NOTE | 2021-06-30 10:11 | Electrocardiogram Report ---
Test Reason : Blood Pressure : / mmHG Vent. Rate : 130 BPM Atrial Rate : 153 BPM P-R Int : 000 ms QRS Dur : 156 ms QT Int : 362 ms P-R-T Axes : 000 -72 069 degrees QTc Int : 532 ms Atrial flutter Right bundle branch block Left anterior fascicular block Bifascicular block Moderate voltage criteria for LVH, may be normal variant Abnormal ECG When compared with ECG of 24-FEB-2014 15:42, Atrial flutter has replaced Sinus rhythm Vent. rate has increased BY 68 BPM (RBBB and left anterior fascicular block) is now Present Confirmed by Joel Villeda ([id number]) on 06/30/2021 10:11:15 AM Referred By: REFERRED SELF Confirmed By:Joel Villeda
--- NOTE | 2021-06-30 10:12 | Electrocardiogram Report ---
Test Reason : Blood Pressure : / mmHG Vent. Rate : 072 BPM Atrial Rate : 072 BPM P-R Int : 190 ms QRS Dur : 166 ms QT Int : 436 ms P-R-T Axes : 061 -67 038 degrees QTc Int : 477 ms Atrial flutter Right bundle branch block Left anterior fascicular block Bifascicular block Moderate voltage criteria for LVH, may be normal variant Abnormal ECG When compared with ECG of 29-JUN-2021 13:38, (unconfirmed) Vent. rate has decreased BY 58 BPM Confirmed by Joel Villeda ([id number]) on 06/30/2021 10:11:37 AM Referred By: REFERRED SELF Confirmed By:Joel Villeda
[2021-06-30 10:16] LABS: BUN Creatinine Ratio 60.7 (10-20); Calcium 9.3 mg/dl (8.5-10.1); Creatinine Clr Calc Pharmacy 91.8 ml/min; Est GFR (African American) 111.6 ml/min; Est GFR (Non-African American) 96.3 ml/min; Potassium 4.7 mmol/L (3.5-5.1)
--- NOTE | 2021-06-30 10:17 | Electrocardiogram Report ---
Test Reason : Blood Pressure : / mmHG Vent. Rate : 073 BPM Atrial Rate : 300 BPM P-R Int : 000 ms QRS Dur : 150 ms QT Int : 408 ms P-R-T Axes : 068 -67 017 degrees QTc Int : 449 ms Atrial flutter with variable A-V block Right bundle branch block Left anterior fascicular block Bifascicular block Minimal voltage criteria for LVH, may be normal variant Abnormal ECG When compared with ECG of 29-JUN-2021 14:05, (unconfirmed) No significant change was found Confirmed by Joel Villeda ([id number]) on 06/30/2021 10:17:06 AM Referred By: REFERRED SELF Confirmed By:Joel Villeda
--- NOTE | 2021-06-30 11:31 | Cardiology Consultation ---
Date of Consultation June 30, 2021 History of Present Illness Attending Physician: Rubin Stout MD History of Present Illness Patient was admitted to the hospital with atrial flutter with a rapid ventricular response and shortness of breath. In fact he did not really feel palpitations he was just very short of breath. He initially required BiPAP. Currently he is on nasal cannula and denies any significant dyspnea at this time. He is not the greatest historian. He denies any chest pain or chest pressure. [place] any lightheadedness or dizziness. He has no lower extremity edema. He has a PEG tube. He is unaware of any palpitations currently. He had an extensive hospitalization at [facility] for which she was there for over 2 months. He was admitted for a bioprosthetic aortic valve replacement, mitral valve (bioprosthetic) replacement, tricuspid valve repair, and ultimately needed a Micra pacemaker placement. He had multiple episodes of respiratory failure ultimately ending up with a PEG and a trache. The trach has since been removed. He initially was discharged to rehab at [facility] but is now in a long term at [facility]. The rest of a complete review of systems is unobtainable Allergies Allergy/AdvReac Type Severity Reaction Status Date / Time Penicillins Allergy Intermediate ITCH Verified 06/29/21 14:29 Iodinated Contrast Media Allergy Verified 06/29/21 14:29 [Iodinated Contrast- Oral and IV Dye] doxycycline AdvReac Intermediate dermatitis Verified 06/29/21 14:29 on lips and hands. Home Medications Medication Instructions Recorded Confirmed Type aspirin 81 mg tablet,delayed 81 mg FEEDING TUBE DAILY tab 06/26/20 06/29/21 History release (Aspirin Low Dose) acetaminophen 325 mg/10.15 mL oral 650 mg FEEDING TUBE Q6H PRN MDD 3 05/21/21 06/29/21 History solution GRAMS/24 HOURS bisacodyl 10 mg rectal suppository 10 mg TN DAILY PRN 05/21/21 06/29/21 History ferrous sulfate 300 mg (60 mg 300 mg FEEDING TUBE DAILY 05/21/21 06/29/21 History iron)/5 mL oral liquid finasteride 5 mg tablet 5 mg FEEDING TUBE DAILY 05/21/21 06/29/21 History atorvastatin 40 mg tablet 40 mg FEEDING TUBE DAILY 06/29/21 06/29/21 History lidocaine 4 % topical patch 1 patch TOPICAL DAILY 06/29/21 06/29/21 History omeprazole 20 mg capsule,delayed 0 mg FEEDING TUBE DAILY 06/29/21 06/29/21 History release sennosides 8.6 mg-docusate sodium 2 tab-cap BID 06/29/21 06/29/21 History 50 mg tablet (Senokot-S) sildenafil (pulm.hypertension) 20 10 mg FEEDING TUBE TID 06/29/21 06/29/21 History mg tablet trazodone 100 mg tablet 100 mg FEEDING TUBE HS 06/29/21 06/29/21 History Patient History Medical History Allergic rhinitis Anemia Aortic stenosis CAD (coronary artery disease) Cardiomyopathy CHF (congestive heart failure), NYHA class II Chronic diastolic CHF (congestive heart failure) Congestive heart failure (CHF) Dysphagia GERD without esophagitis Gout Hearing loss of both ears due to cerumen impaction Hypercholesterolemia Itching Lung nodule Mediastinal lymphadenopathy Medicare annual wellness visit, subsequent Memory loss Mitral regurgitation and mitral stenosis Pulmonary hypertension Varicose vein of leg Vitamin D deficiency Surgical History Amputated finger H/O arthroscopic knee surgery Family History Other No pertinent family history Social History Smoking Status: Never smoker Second Hand Exposure: No; Do You Dip or Chew Tobacco: No; Tobacco Cessation Education Requested by Patient: No Hx Alcohol Use: No Hx Substance Use: No Preferred Language: Kazakh Communication Ability: Effective Visual Impairment: Limited Hearing Ability: Hard of Hearing [employer] Basic Required: No Beliefs That Will Affect Care: None marital status: Single Current Living Situation: Intermediate current occupational status: employed Other Information That Helps Us Care for You: No Feels Safe at Home: Yes Safety Concerns: Feels Safe At This Time Childhood Exposure to Second-Hand Smoke: No Physical Activity Frequency: Daily Seatbelt Use: always Sunscreen Use: No Assistive Devices: Oxygen - Continuous Results & Data ([facility]) Vital Signs (Past 12 Hours) Vital Signs Temp Pulse Resp BP BP Pulse Ox 06/30/21 08:24 36.6 C 73 18 119/62 95 06/30/21 03:36 36.6 C 74 18 115/63 97 06/29/21 23:54 36.6 C 73 18 104/64 94 He is awake and alert although sleepy he seemed to answer questions appropriately although I did not ask him any difficult questions. HEENT: 2+ carotid upstrokes Lungs: Decreased breath sounds in the bases but no rales rhonchi or wheezing Heart: Regular rate and rhythm (controlled atrial flutter) there is a soft systolic ejection murmur across the upper right sternal border Abdomen: Soft nontender distended positive bowel sounds Extremities: No clubbing cyanosis or edema His inpatient records were reviewed during this hospitalization. I spent 20 minutes reviewing his [facility] records with the emergency room physician yesterday. IMPRESSIONS: 1 acute respiratory failure possibly related to mucous plugging 2. Chronic atrial flutter since his open heart surgery with a rapid ventricular response now well controlled with metoprolol 25 mg twice daily and improvement in his respiratory status 3. Status post placement of a Colette-Carpenter 25 mm bioprosthetic aortic valve replacement; 29 mm epic bioprosthetic mitral valve replacement; 30 mm Medtronic tricuspid valve ring for a tricuspid valve repair 4. Postoperative ESCOBAR with an ejection fraction range of 45% with no follow-up echocardiogram during his 2 months of hospitalization at [facility] status post Micra RV apical pacemaker 6. Previously on anticoagulation but unclear as to why he was not discharged on anticoagulation prior to his discharge from [facility] with chronic atrial flutter From my standpoint he is stable metoprolol seems to be controlling his heart rate nicely his respiratory status has improved. If you look at his laboratory studies he is somewhat prerenal and I would not aggressively diurese him. He will need aggressive pulmonary toilet and I would also make sure he is not aspirating tube feeds. I did review his records from [facility] and could not determine why he was not discharged on anticoagulation. This will need to be addressed by his primary fish grader Dr. Albarran. From my standpoint he is stable if he ends up going [facility] today he definitely needs to see Dr. Albarran in the office in the next 7 to 10 days.
--- NOTE | 2021-06-30 13:12 | Hospitalist Progress Note ---
Date of Service June 30, 2021 Assessment & Plan (1) Acute respiratory failure with hypoxia: Plan: Frank is an 81-year-old male with a past medical history of A. fib with RVR, heart failure with preserved ejection fraction/CAD, valve disease status post AVR/MVR/tricuspid ring at [facility] with subsequent shock and heart failure with third-degree heart block requiring transvenous pacer placement. He presents to [facility] with rapid A. fib and shortness of breath requiring BiPAP now weaned to nasal cannula. Acute hypoxic respiratory failure, rate related due to A. fib with RVR versus mucous plug Converted to atrial flutter with rates in the 70s last night, and then subsequently to normal sinus rhythm overnight Cardiology was consulted. Adequate rate control with metoprolol 25 mg twice daily at time of assessment with improvement in respiratory status. Reviewed postop ESCOBAR with EF 45% without subsequent repeat. On review of records was previously anticoagulated but this was stopped and was not continued on discharge with unclear reasoning. Would defer aggressive diuresis, continue aggressive pulmonary toilet. Apixaban was started on admission recommended discussing anticoagulation with primary pediatric geneticist Dr. Albarran. Would recommend cardiology follow-up within 7 to 10 days if discharged. From cardiology standpoint patient is currently stable. Appreciate recommendations. CTchest: No evidence of pulmonary embolism, evidence of cardiomegaly and pulmonary hypertension with bilateral GGO suspicious for inflammatory versus infectious process Lactate normal Procalcitonin normal Antibiotics deferred on admission given above with suspicion for mucous plugging versus rate related findings Admitted on BiPAP, subsequently weaned down to 2 L of nasal cannula which is his baseline - Per family had recurrent mucous plugging in [place] requiring multiple bronchoscopiesflutter (2) Atrial fibrillation with RVR: Plan: - At presentation to ED, found to be in A. fib RVR with heart rate in 130s. Converted to normal sinus rhythm after 5 mg IV Lopressor, however back in 2:1 a flutter with heart rate in 70s. Subsequently converted back to sinus as noted - Patient had episode a fib during his complicated hospitalization for valve replacements. No other history of this. Unknown how long he has been in this. - Electrolytes within normal limits. Will obtain echo, TSH. - Cardiology recommendations as noted above - Continue Eliquis (3) UTI (urinary tract infection): Plan: - Penicillin allergy 'itching'. Family reports historical as a child. Has tolerated ancef without rxn recently. - UA with >100k GNB - Leukocytosis on admit - Pt denies acute urinary sx althoug hsomewhat limited historian. Given presentation, WBC, high counts, and more uncommon asympt. bacturia in men will treat empirically w/ rocephin (4) Elevated troponin: Plan: - Initial high sensitive troponin 51.8, repeat hours later 66.4. Peaked and now downtrending - In the setting of A. fib with RVR, hypoxemia, suspect this is demand ischemia. (5) Leukocytosis: Plan: - 12.91, with lactate and procalcitonin within normal limits. Leukocytosis improved Patient does have greater than 100 K gram-negative bacilli in urine Limited historian Given above presentation worsening and male UTI and high counts will treat empirically (6) (HFpEF) heart failure with preserved ejection fraction: Plan: - Echo from March 2021: Stunned myocardium, LVEF 40 to 45%, globally hypokinetic. - Appears euvolemic. He was previously been on diuretic, no longer taking. Defer additional diuresis at this time -Repeat echo pending (7) CAD (coronary artery disease): Plan: - As noted otherwise, continue aspirin/statin/metoprolol (8) Pulmonary hypertension: Plan: - Continue sildenafil 10 mg 3 times daily. (9) GERD without esophagitis: Plan: - Continue PPI daily. (10) Hypercholesterolemia: Plan: - Continue atorvastatin 40 mg daily. (11) BPH (benign prostatic hyperplasia): Plan: - Continue finasteride. (12) Dysphagia: Plan: - Chronic PEG tube in place: Jevity 85 cc/hr 3pm - 7 am with 20cc water flushes Q6h. on admit -Discussed with nutrition, free water flushes decreased from 200 for concern of of CHF 06/30 Plan: - Admit to PCU. - SCDs, Eliquis for DVT ppx. - Full Code. Admission and Anticipated Discharge Date Admission Date: June 29, 2021 Tiny Marie is seen at the bedside this morning. Awakens easily. Somewhat unreliable to historian, but reports he is aware that he is in the hospital and is oriented to name. Not oriented to date. He denies chest pain/chest pressure at bedside assessment. He reports his breathing is little bit worse than normal, but better than it was earlier. Denies dyspnea at time of bedside assessment. No nausea/vomiting/diarrhea/constipation. Denies palpitations. Denies urinary sx including dysuria and incontinence. Discussed w/ family and has tolerated ancef in the past Review of Systems Review of Systems: All systems reviewed & are unremarkable except as noted in Subjective Physical Exam Physical Exam: General: Oriented to name and place. NAD. Cooperative. HEENT: Atraumatic, normocephalic. Vision and hearing grossly intact Pulm: Moderate air movement, breathing comfortably on 2 L nasal cannula, lungs are grossly clear without wheezes/rales/rhonchi and minimal crackles which clear on deep breath. Symmetrical chest rise. No increase in work of breathing. No respiratory distress. Cardiac: RRR, systolic murmur present. Radial pulses intact and symmetrical. Abdominal: Nontender, nondistended, soft. BS present. Results & Data Results & Data ([facility]) Vital Signs (Past 12 Hours) Vital Signs Temp Pulse Resp BP BP Pulse Ox 06/30/21 11:15 36.4 C L 74 18 102/47 L 99 06/30/21 08:24 36.6 C 73 18 119/62 95 06/30/21 03:36 36.6 C 74 18 115/63 97 PG Care Time/CCT Total # of Minutes Spent Total Time Spent with Patient: Total time spent is greater than 50% in coordination of care (as documented) at patient's floor/unit and/or counseling patient: Coding Level of Care Code 20172 Subseq Hosp Care Lvl 3 Diagnoses Acute respiratory failure with hypoxia J96.01 Atrial fibrillation with RVR I48.91 Elevated troponin R77.8 Leukocytosis D72.829 (HFpEF) heart failure with preserved ejection fraction I50.30 CAD (coronary artery disease) I25.10 Pulmonary hypertension I27.20 GERD without esophagitis K21.9 Hypercholesterolemia E78.00 BPH (benign prostatic hyperplasia) N40.0 Dysphagia R13.10 UTI (urinary tract infection) N39.0
[2021-06-30] MEDS: cefTRIAXone SODIUM 2,000 MG in DEXTROSE 5% 50 ML IV SCH (13:32)
[2021-06-30] MEDS: FIBERSOURCE HN 1.2 CAL 1000 ML BAG PO SCH (15:25)
[2021-06-30] MEDS: traZODone HCL 100 MG TAB PO SCH (20:35)
[2021-07-01] MEDS: TUBE FEEDING WATER FLUSH PEG SCH ×4 (02:47→14:33)
[2021-07-01] MEDS: [UNRECOGNIZED DRUG - REMARK] SCH (06:31)
[2021-07-01 07:25] LABS: Basophils # (auto) 0.03 K/uL (0-0.2); Basophils % (auto) 0.4 %; Eosinophils # (auto) 0.12 K/uL (0-0.5); Eosinophils % (auto) 1.4 %; Hematocrit (blood only) 31.3 % (42-52); Hemoglobin 10.2 g/dL (14.0-18.0); Immature Granulocytes # (auto) 0.03 K/uL (0.00-0.02); Immature Granulocytes % (auto) 0.4 %; Lymphocytes # (auto) 1.18 K/uL (1.2-3.4); Lymphocytes % (auto) 13.9 %; Mean Corpuscular Hemoglobin 33.6 pg (25-34); Mean Corpuscular Hgb Conc 32.6 g/dL (32-36); Mean Platelet Volume 10.4 fL (7.4-10.4); Neutrophils # (auto) 6.02 K/uL (1.4-6.5); Neutrophils % (auto) 70.9 %; Platelet Count 205 K/uL (130-400); RDW Standard Deviation 64.6 fL (36.4-46.3); Red Blood Count 3.04 M/uL (4.7-6.1); White Blood Count 8.48 K/uL (4.8-10.8)
[2021-07-01] MEDS: FINASTERIDE 5 MG TAB PEG SCH (07:47)
[2021-07-01] MEDS: METOPROLOL TARTRATE 25 MG TAB OG SCH (07:47)
[2021-07-01] MEDS: APIXABAN 2.5 MG TAB PO SCH (07:47)
[2021-07-01] MEDS: ATORVASTATIN 40 MG TAB PEG SCH (07:47)
[2021-07-01] MEDS: SILDENAFIL CITRATE 20 MG TABLET PO SCH ×2 (07:47→14:33)
[2021-07-01] MEDS: LANSOPRAZOLE 30 MG SOLTAB NG SCH (07:47)
[2021-07-01] MEDS: DOCUSATE SODIUM/SENNA 50/8.6MG TAB PO SCH (07:48)
[2021-07-01] MEDS: LIDOCAINE 5% 1 PATCH TD SCH (07:48)
[2021-07-01] MEDS: cefTRIAXone SODIUM 2,000 MG in DEXTROSE 5% 50 ML IV SCH (07:48)
[2021-07-01] MEDS: FERROUS SULFATE ELIX 220MG/5ML PEG SCH (07:48)
[2021-07-01 07:49] LABS: BUN Creatinine Ratio 58.5 (10-20); Calcium 9.1 mg/dl (8.5-10.1); Est GFR (African American) 114.2 ml/min; Est GFR (Non-African American) 98.5 ml/min; Potassium 4.6 mmol/L (3.5-5.1)
[2021-07-01] MEDS: ASPIRIN 81 MG CHEW PEG SCH (07:50)
--- NOTE | 2021-07-01 11:56 | Discharge Summary ---
Date of Service July 01, 2021 Admission HPI Per Admitting Provider Mr. Trevizo is an 81-year-old male with past medical history significant for elective aortic and mitral valve replacement and tricuspid valve ring in March 2021 with multiple postoperative complications, CAD, BPH, pulmonary hypertension, GERD, iron deficiency anemia, chronic systolic and diastolic heart failure who presents today from [facility] due to shortness of breath and hypoxia this morning. Patient's niece is at bedside, contributes most of history. States she was visiting with her uncle last evening, when he was doing okay, did not feel great, but did not have specific complaints and seemed to be improving since discharge from [facility] 2 days prior. Patient states he had had some difficulty breathing this morning, otherwise without complaints. Patient's niece received a call from the facility this morning and they were transporting him to the ED for evaluation due to SPO2 in 80s and complains of shortness of breath. In ED, he presented on a nonrebreather mask, transitioned to BiPAP here with SpO2 > 95%, HR 140s found to be in a fib with RVR on presentation. BP hypertensive, 130-140s, stable. Labs significant for WBC 12.91 lactate 1.0, PCT < 0.05. Hgb 11.6 (baseline). vBG: H 7.35, CO2 62, O2 47, bicarb 34. BUN 26, Cr 0.52 (baseline). Initial HS trop 51.8, repeat 66.4. UA contaminated with epithelial cells, but with nitrites, bacteria, WBC. flu/COVID/RSV negative. CXR with faint bibasilar airspace opacities which may represent atelectasis, pneumonia, and/or aspiration. Patient received 5 mg IV Lopressor for A. fib and converted to NSR, converted back to atrial flutter.also received IV cefepime for empiric ABX given his leukocytosis. Hospitalist service consulted for further evaluation and admission. Principal Diagnosis A. fib with RVR Mucous plug impaction Demand ischemia Discharge Exam General: Oriented to name and place. NAD. Cooperative. HEENT: Atraumatic, normocephalic. Vision and hearing grossly intact Pulm: Moderate air movement, breathing comfortably on 2 L nasal cannula, lungs are grossly clear without wheezes/rales/rhonchi and minimal crackles which clear on deep breath. Symmetrical chest rise. No increase in work of breathing. No respiratory distress. Cardiac: RRR, systolic murmur present. Radial pulses intact and symmetrical. Abdominal: Nontender, nondistended, soft. BS present. Discharge Data Allergies Allergy/AdvReac Type Severity Reaction Status Date / Time Penicillins Allergy Intermediate ITCH Verified 06/29/21 14:29 Iodinated Contrast Media Allergy Verified 06/29/21 14:29 [Iodinated Contrast- Oral and IV Dye] doxycycline AdvReac Intermediate dermatitis Verified 06/29/21 14:29 on lips and hands. Consultations 06/29/21 15:02 ED Decision to Admit Stat 06/29/21 17:56 Consult Cardiology Routine Ordered Studies 06/29/21 15:48 CT angio chest PE protocol Stat Hospital Course (1) Acute respiratory failure with hypoxia: Frank is an 81-year-old male with a past medical history of A. fib with RVR, heart failure with preserved ejection fraction/CAD, valve disease status post AVR/MVR/tricuspid ring at [facility] [place] with subsequent shock and heart failure with third-degree heart block requiring transvenous pacer placement. He presents to [facility] with rapid A. fib and shortness of breath requiring BiPAP now weaned to nasal cannula. To do as outpatient: 1. Complete 5 days of cefdinir 300 mg p.o. twice daily treatment for UTI, follow-up with final urine cultures which were pending with gram-negative bacilli at discharge 2. Continue apixaban 5 mg p.o. twice daily for stroke prevention with A. fib. Rate/benefits were discussed with patient and daughter as patient did have a history of bleeding in the past without recent bleeding. They will also follow- up with her primary crusher assembler. 3. Follow-up with cardiology for A. fib, history of heart failure, valve replacements. 4. Continue chest physiotherapy, flutter valve to encourage mucus clearance. May use DuoNeb's as needed every 6 hours for breathing exacerbations 5. Continue metoprolol 25 mg tartrate p.o. twice daily for A. fib rate control 6. Patient with aspiration of thin liquids on video swallow during admission. This was scheduled as an outpatient, but able to be performed while patient was hospitalized. Reviewed with speech pathology. Recommended to continue nonoral nutrition through PEG tube, oral hygiene, and aspiration encouraged precautions. Pérez water protocol for oral comfort. Reflux precautions with head of bed up at 30 degrees at all times and upright with meals 30 minutes post. Acute hypoxic respiratory failure, rate related due to A. fib with RVR versus mucous plug, recurrent aspiration risk Converted to atrial flutter with rates in the 70s last night, and then subsequently to normal sinus rhythm overnight Cardiology was consulted. Adequate rate control with metoprolol 25 mg twice daily at time of assessment with improvement in respiratory status. Reviewed postop ESCOBAR with EF 45% without subsequent repeat. On review of records was previously anticoagulated but this was stopped and was not continued on discharge with unclear reasoning. Would defer aggressive diuresis, continue aggressive pulmonary toilet. Apixaban was started on admission recommended discussing anticoagulation with primary crusher assembler Dr. Albarran. Would recommend cardiology follow-up within 7 to 10 days if discharged. From cardiology standpoint patient is currently stable. Appreciate recommendations. CTchest: No evidence of pulmonary embolism, evidence of cardiomegaly and pulmonary hypertension with bilateral GGO suspicious for inflammatory versus infectious process Lactate normal Procalcitonin normal Antibiotics deferred on admission given above with suspicion for mucous plugging versus rate related findings Admitted on BiPAP, subsequently weaned down to 2 L of nasal cannula which is his baseline - Per family had recurrent mucous plugging in new [place] requiring multiple bronchoscopies Patient with easy aspiration noted on video swallow as above. Precautions noted as above (2) Atrial fibrillation with RVR: - At presentation to ED, found to be in A. fib RVR with heart rate in 130s. Converted to normal sinus rhythm after 5 mg IV Lopressor, however back in 2:1 a flutter with heart rate in 70s. Subsequently converted back to sinus as noted - Patient had episode a fib during his complicated hospitalization for valve replacements. No other history of this. Unknown how long he has been in this. - Electrolytes within normal limits. Will obtain echo, TSH. - Cardiology recommendations as noted above - Continue Eliquis (3) UTI (urinary tract infection): - Penicillin allergy 'itching'. Family reports historical as a child. Has tolerated ancef without rxn recently. - UA with >100k GNB - Leukocytosis on admit - Pt denies acute urinary sx althoug hsomewhat limited historian. Given presentation, WBC, high counts, and more uncommon asympt. bacturia in men will treat empirically w/ rocephin Verted to cefdinir 5-day course on discharge (4) Elevated troponin: - Initial high sensitive troponin 51.8, repeat hours later 66.4. Peaked and now downtrending - In the setting of A. fib with RVR, hypoxemia, suspect this is demand ischemia. (5) Leukocytosis: - 12.91, with lactate and procalcitonin within normal limits. Leukocytosis improved Patient does have greater than 100 K gram-negative bacilli in urine Limited historian Given above presentation worsening and male UTI and high counts will treat empirically (6) (HFpEF) heart failure with preserved ejection fraction: - Echo from March 2021: Stunned myocardium, LVEF 40 to 45%, globally hypokinetic. - Appears euvolemic. He was previously been on diuretic, no longer taking. Defer additional diuresis at this time -Repeat echo pending (7) CAD (coronary artery disease): - As noted otherwise, continue aspirin/statin/metoprolol (8) Pulmonary hypertension: - Continue sildenafil 10 mg 3 times daily. (9) GERD without esophagitis: - Continue PPI daily. (10) Hypercholesterolemia: - Continue atorvastatin 40 mg daily. (11) BPH (benign prostatic hyperplasia): - Continue finasteride. (12) Dysphagia: - Chronic PEG tube in place: Jevity 85 cc/hr 3pm - 7 am with 20cc water flushes Q6h. on admit -Discussed with nutrition, free water flushes decreased from 200 for concern of of CHF 06/30 - Admit to PCU. - SCDs, Eliquis for DVT ppx. - Full Code. Total Time Total Time Spent Total Time Spent (In Minutes): Time spend day of discharge 45 minutes including direct patient care, docume ntation, review of labs and images, and coordination of care. Discharge Plan Discharge Items Patient Disposition: Transfer Custodial Fac Reason For Visit: NEW AFIBB WITH RVR, HYPOXIA Discharge Diagnosis: A. fib with RVR Mucous plugging Activity: Per Instructions section Non-emergency contact: Primary Care Provider Call non-emergency contact if: you have any medication questions and your symptoms worsen Follow-up/Referrals: Gal Santiago MD [Primary Care Provider] - Diet: Nothing by Mouth Addtl Attending Provider Instructions: You are seen in the hospital for shortness of breath and hypoxia following an episode of suspected mucous plugging with A. fib and rapid ventricular response. You are treated with breathing treatments and your oxygen levels returned to their baseline of 2 L. Your A. fib was treated with rate control with metoprolol and you converted to a atrial flutter rhythm, and then back to normal sinus rhythm. The rate/benefits of anticoagulation were discussed with you and your daughter, you are increased bleeding risk with prior bleeds but also with increased risk due to your A. fib which is paroxysmal in nature. Anticoagulation was restarted with apixaban 5 mg by mouth twice daily, please continue this as outpatient. Follow-up with your primary crusher assembler has been scheduled as above. You are found to have gram-negative bacilli in your urine, and given your acute worsening/fatigue with A. fib which can occur in the setting of infection you were treated with empiric antibiotics. You clinically improved on ceftriaxone. You were discharged to continue cefdinir 300 mg by mouth twice daily for 4 additional days for treatment of UTI. Your clean-catch urine cultures were still preliminary/pending at time of discharge, please have the center care physician follow-up as certain resistance patterns may require adjustment in your antibiotic. Please continue taking metoprolol tartrate 25 mg twice daily for rate control of A. fib. You have had recurrent mucous plugging in the past. Please continue to use a flutter valve as needed, and you may use DuoNebs every 6 hours as needed for exacerbations. You may have center care performed chest percussion/physiotherapy which may help with mucus clearance. You were breathing normally at time of discharge. You had a video swallow scheduled as outpatient, this was able to be completed as an inpatient. You had easy aspiration of thin liquids. Your case was reviewed with speech pathology. Is recommended that you continue nonoral nutrition through your PEG tube. Please continue regular oral hydration. Please continue aspiration GERD precautions including having the head of the bed up at 30 degrees at all times and sitting upright with meals and 30 minutes post. Pérez protocol for oral comfort was recommended. This likely contributes to your episodes of coughing/hypoxia, and aspiration can lead to pneumonia. If you develop any new or worsening symptoms including fever, chills, sweats, chest pain, chest pressure, difficulty breathing, uncontrolled nausea/vomiting, rash, wheezing, passing out or nearly passing out, bleeding, black/bloody bowel movements, or other new or concerning symptoms please call your primary care physician, or call 911 for re-evaluation in the emergency department if you are very concerned. Pending Studies at Discharge: Yes ( speciation) Stand-Alone Forms: My [facility] Skilled Items Patient informed of condition?: Yes DNR: No Discharge Level of Care: Skilled Communicable Disease: No Discharge Prognosis: Stable Lines: None Urinary Catheter: No Medications and DC Order Prescriptions: New metoprolol tartrate 25 mg Tablet 25 mg OG BID 30 Days Qty: 60 RF: 0 cefdinir 300 mg capsule 300 mg PO BID 5 Days Qty: 10 RF: 0 Continued aspirin [Aspirin Low Dose] 81 mg tablet,delayed release (DR/EC) 81 mg feeding tube DAILY RF: 0 acetaminophen 325 mg/10.15 mL solution 650 mg feeding tube Q6H MDD 3 GRAMS/24 HOURS PRN (Reason: PAIN/FEVER) RF: 0 bisacodyl 10 mg suppository 10 mg NM DAILY PRN (Reason: NO BM IN 3 DAYS.) RF: 0 ferrous sulfate 300 mg (60 mg iron)/5 mL liquid 300 mg feeding tube DAILY RF: 0 finasteride 5 mg tablet 5 mg feeding tube DAILY RF: 0 lidocaine 4 % Adhesive Patch,Medicated 1 patch TOPICAL DAILY RF: 0 sennosides-docusate sodium [Senokot-S] 8.6-50 mg Tablet 2 tab-cap BID RF: 0 trazodone 100 mg Tablet 100 mg feeding tube HS RF: 0 omeprazole 20 mg Capsule,Delayed Release(Dr/Ec) 0 mg feeding tube DAILY RF: 0 sildenafil (pulm.hypertension) 20 mg Tablet 10 mg feeding tube TID RF: 0 atorvastatin 40 mg tablet 40 mg feeding tube DAILY RF: 0 Discharge Orders: Discharge Order (Routine); Ordered 07/01/21 Ordered By: Rubin Stout Admission Data Admit Date/Time: 06/29/21 16:09 Attending Provider: Rubin Stout Admit Provider: Jey Aldana Primary Care Provider: aGl Santiago Other Providers: Jey Aldana ; [place] [place] ; Joel Villeda Other Interventions: Discharge Summary Assessment (RN) Last Done: 07/01/21 14:21 Coding Level of Care Code D/C DAY MANAGEMENT >30 MINS Diagnoses Acute respiratory failure with hypoxia J96.01 Atrial fibrillation with RVR I48.91 UTI (urinary tract infection) N39.0 Elevated troponin R77.8 Leukocytosis D72.829 (HFpEF) heart failure with preserved ejection fraction I50.30 CAD (coronary artery disease) I25.10 Pulmonary hypertension I27.20 GERD without esophagitis K21.9 Hypercholesterolemia E78.00 BPH (benign prostatic hyperplasia) N40.0 Dysphagia R13.10
--- NOTE | 2021-07-01 12:07 | Cardiology Progress Note ---
Date of Service July 01, 2021 Assessment & Plan (1) Atrial flutter: (2) Elevated troponin: (3) CAD (coronary artery disease): (4) Mitral regurgitation and mitral stenosis: (5) Cardiomyopathy: (6) Aortic stenosis: (7) Complete heart block: Plan: 1. Atrial flutter: This appears to be stable. He has reported complete heart block but clearly conducts some of the atrial flutter. This alternates with ventricular pacing. I do not believe he requires any more aggressive attempts at rate control given his current telemetry readings. He was started on metoprolol tartrate which should be converted to metoprolol succinate 50 mg daily. He appears to be primarily bedbound as well. This likely simplify his rate control. The more pressing question would be the role of anticoagulation. He has multiple risk factors and generally would be advised to start systemic anticoagulation. 2. Valvular heart disease: Status post both aortic and mitral bioprosthetic valve replacement. Normally functioning on recent echocardiogram. 3. Cardiomyopathy: He is known to have an element of reduced LV systolic function. However, he appears to be well compensated currently. It breathing trouble yesterday was likely not related to pulmonary edema. Clinically he may in fact be somewhat dry. As noted above, transition of his metoprolol tartrate to succinate would be advisable. His clinical condition can be monitored as an outpatient to see if more aggressive treatment with Theron inhibition can be accomplished. 4. Complete heart block: He does appear to have some intrinsic conduction. He has a leadless pacemaker set to VVI 70. He has occasional demand ventricular pacing. 5. Coronary disease: Nonobstructive based on cardiac catheterization performed in April of 2020. No current symptoms of angina. Continue atorvastatin. 6. Elevated troponin: Perhaps a very mild injury related to his known reduced LV function and presentation with respiratory distress. Do not believe this is indicative of an acute coronary syndrome. Admission and Anticipated Discharge Date Admission Date: June 29, 2021 Subjective This morning patient claimed to have some element of breathing difficulty and pain at the operative site as well as the left shoulder. He states that his breathing seems to be improved from admission. Review of Systems Review of Systems: Per HPI. No walking ability by patient report. He is not able to swallow by report. Physical Exam Physical Exam: The patient is alert and oriented. Mood and affect appeared normal. He answered all questions appropriately, but seemed confused at times HEENT: Pupils are equal and reactive to light and accommodation. Extraocular movements are intact. The sclerae are anicteric. Neuro: Cranial nerves intact Lungs: Some crackles at the left base. Normal respiratory effort. No expiratory wheezing. Cardiac: Heart demonstrates an irregular rate and rhythm. Normal S1 and S2. Systolic ejection murmur. Chest: Well-healed sternotomy scar. Pulses: The patient has palpable radial pulses bilaterally that are equal in intensity Extremities: There was no evidence of hypoperfusion. There is no cyanosis or clubbing. There is no edema. Skin: I did not appreciate any rashes on examination today. Results & Data ([facility]) Vital Signs (Past 12 Hours) Vital Signs Temp Pulse Resp BP Pulse Ox 07/01/21 07:27 36.4 C L 62 18 117/67 100 07/01/21 03:20 36.7 C 74 18 114/65 96 Laboratory Results Abnormal Lab Results 06/30/21 07/01/21 07/01/21 17:34 06:47 06:47 WBC 8.48 RBC 3.04 L Hgb 10.2 L Hct 31.3 L MCV 103.0 H MCH 33.6 MCHC 32.6 RDW Std Deviation 64.6 H RDW Coeff of Alejandro 17.0 H Plt Count 205 MPV 10.4 Immature Gran % (Auto) 0.4 Neut % (Auto) 70.9 Lymph % (Auto) 13.9 [place] % (Auto) 13.0 Eos % (Auto) 1.4 Baso % (Auto) 0.4 Neut # (Auto) 6.02 Lymph # (Auto) 1.18 L [place] # (Auto) 1.10 H Eos # (Auto) 0.12 Baso # (Auto) 0.03 Immature Gran # (Auto) 0.03 H Sodium 139 Potassium 4.6 Chloride 99 Carbon Dioxide 35 H Anion Gap 5 BUN 31 H Creatinine 0.53 L Est Cr Clr Drug Dosing 97.0 Est GFR ( Amer) 114.2 Est GFR (Non-Af Amer) 98.5 BUN/Creatinine Ratio 58.5 H Glucose 88 Calcium 9.1 Troponin I High Sens 77.1 H* PG Care Time/CCT Total # of Minutes Spent Total Time Spent with Patient: Total time spent is greater than 50% in coordination of care (as documented) at patient's floor/unit and/or counseling patient: Coding Level of Care Code 79200 Subseq Hosp Care Lvl 2 Diagnoses Atrial flutter I48.92 Atrial flutter type: unspecified Elevated troponin R77.8 CAD (coronary artery disease) I25.10 Mitral regurgitation and mitral stenosis I05.2 Cardiomyopathy I42.9 Aortic stenosis I35.0 Complete heart block I44.2 (1) Atrial flutter Atrial flutter type: unspecified Qualified Code(s): I48.92 - Unspecified atrial flutter
--- NOTE | 2021-07-01 14:37 | Fluoroscopy Report ---
FL video swallow CLINICAL HISTORY: 81 years-old Male with assess for aspiration. Dysphasia. TECHNIQUE: Video fluoroscopic evaluation of swallowing was performed in the AP and lateral projection s by the speech pathology staff. The patient is fed thin liquid, mildly thick and pudding consistenci es. FLUOROSCOPY TIME: 2.1 minutes. COMPARISON STUDY: CTA chest 06/29/2021 FINDINGS: Posterior cervical spinal fusion hardware is noted. Silent aspiration with thin liquid pankaj um.. Vallecular residue is noted with the pudding consistency. There is decreased epiglottic inversio n throughout the study. IMPRESSION: 1. Aspiration with thin liquid barium. 2. Please see the speech pathologist report for detailed findings and recommendations. ACT 112: Negative or not required by law. Electronically signed by: Steven Guerrero M.D. 07/01/2021 2:34 PM
[2021-07-02 08:48] LABS: KPC Carbapenemase NOT DETECTED (NotDetected); NDM Carbapenemase NOT DETECTED (NotDetected)
--- NOTE | 2021-07-02 09:29 | Pharmacy Report ---
ED Pharmacist Progress Note - ED Pharmacist Progress Note Date of Service:: July 02, 2021 Notes:: Received message from charge nurse, they were called from lab for a positive blood culture (G- bacilli) on patient. Patient was admitted to [facility] and discharged yesterday. Patient was treated with ceftriaxone at visit and discharged with cefdinir- the citrobacter that grew in urine was resistant to this. Alerted [facility] (Dr. Stout) who discharged patient yesterday who stated they would address. No further ED action.
--- NOTE | 2021-07-02 10:02 | Communication Note ---
Date of Service: July 02, 202102/19 BC+ at 3 days and final speciation citrobacter rocephin resistant. Discussed with [facility]. Provider aware, pt switched to ciprofloxacin this morning, clinically well.
== END 2021-07-01 15:28 | DRG 205 ==
LOC: ED 13:29 → 2S 16:09 → SUATTDRO 16:09 → 2S 17:03
DX: I25.10 Atherosclerotic heart disease of native coronary artery without angina pectoris; Z95.0 Presence of cardiac pacemaker; Z95.2 Presence of prosthetic heart valve; T17.908A Unspecified foreign body in respiratory tract, part unspecified causing other injury, initial encounter; Z79.899 Other long term (current) drug therapy; K21.9 Gastro-esophageal reflux disease without esophagitis; I24.8 Other forms of acute ischemic heart disease; J96.01 Acute respiratory failure with hypoxia; E78.00 Pure hypercholesterolemia, unspecified; Z91.041 Radiographic dye allergy status; Z88.0 Allergy status to penicillin; Z93.1 Gastrostomy status; N40.0 Benign prostatic hyperplasia without lower urinary tract symptoms; Z79.82 Long term (current) use of aspirin; I51.7 Cardiomegaly; I48.92 Unspecified atrial flutter; Z88.1 Allergy status to other antibiotic agents; R13.10 Dysphagia, unspecified; N39.0 Urinary tract infection, site not specified; I50.32 Chronic diastolic (congestive) heart failure; I48.91 Unspecified atrial fibrillation; I27.20 Pulmonary hypertension, unspecified